=== PATIENT | male | born 1950 | race Caucasian/White ===

== ENCOUNTER 2022-10-01 13:13 | Emergency (ER) | payer MEDICARE, OTHER, SELFPAY ==
[2022-10-01] VITALS (13 sets, daily range): BP systolic 132–163; BP diastolic 78–91; PULSE 68–76; RESP 16; TEMP 36.3; O2SAT 99–100; BMI 30.1
--- NOTE | 2022-10-01 13:28 | ED.GENADULT ---
HPI - General Adult General Time Seen by Provider: 13:28 Date Seen: 10/01/22 Chief complaint: Chest Pain Stated complaint: Light headed/Tightness in Chest Time Seen by Provider: 10/01/22 13:16 Source: patient and RN notes reviewed Mode of arrival: ambulatory Limitations: no limitations History of Present Illness HPI narrative: Patient is a 71-year-old s[place]ana coming in with concern of chest tightness associated with activity. He has noticed increasing sense of chest tightness that happens in the anterior center of his chest with activity. 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 It will go away quickly after rest. He has had no cough or cold symptoms, no recent illness with COVID. In fact, he states he has never had COVID. This tightness does not radiate anywhere. He may feel little lightheaded with it and mildly short of breath. He admits he has some mild underlying COPD but this seems to be escalating in the tightness in his chest with activity. Certainly seems that there has been are recent worsening of his symptoms. He denies any edema. He is not having any chest discomfort at this time. He has no prior cardiac history. He states he recently had his cholesterol drawn and was within guideline limits. He denies any diabetes or hypertension. He has a remote history of smoking. He is unaware of any family history of cardiac disease. Related Data Home Medications Medication Instructions Recorded Confirmed aspirin 81 mg capsule 81 mg PO DAILY 10/01/22 10/01/22 omeprazole 20 mg capsule,delayed 20 mg PO DAILY 10/01/22 10/01/22 release Allergies Allergy/AdvReac Type Severity Reaction Status Date / Time No Known Drug Allergies Allergy Verified 10/01/22 13:25 Review of Systems Status of ROS: Reports: 10 or more systems reviewed and unremarkable except as noted in History and below PFSH PFSH Social History Smoking Status: Never smoker How often do you have a drink containing alcohol: never AUDIT-C Alcohol total score: 0 Non-prescribed substance use: denies use Exam Const: Vital Signs, click to edit/add: Vital Signs - 24 hr 10/01/22 13:22 10/01/22 13:52 10/01/22 14:00 Temperature 97.4 F L Pulse Rate 71 70 Pulse Rate [Pulse Oximeter] 75 Respiratory Rate 16 Blood Pressure Blood Pressure [Ri ght Upper Arm] 163/91 H Pulse Oximetry 100 100 100 Oxygen Delivery Me thod Room Air 10/01/22 14:02 10/01/22 14:03 10/01/22 14:30 Temperature Pulse Rate 68 74 72 Pulse Rate [Pulse Oximeter] Respiratory Rate Blood Pressure 132/78 Blood Pressure [Ri ght Upper Arm] Pulse Oximetry 100 99 100 Oxygen Delivery Me thod 10/01/22 14:32 10/01/22 15:00 10/01/22 15:02 Temperature Pulse Rate 73 71 71 Pulse Rate [Pulse Oximeter] Respiratory Rate Blood Pressure 138/86 143/78 H Blood Pressure [Ri ght Upper Arm] Pulse Oximetry 99 100 100 Oxygen Delivery Me thod 10/01/22 15:30 10/01/22 15:32 10/01/22 16:00 Temperature Pulse Rate 74 73 76 Pulse Rate [Pulse Oximeter] Respiratory Rate Blood Pressure 139/82 Blood Pressure [Ri ght Upper Arm] Pulse Oximetry 99 99 100 Oxygen Delivery Me thod 10/01/22 16:01 Temperature Pulse Rate Pulse Rate [Pulse Oximeter] Respiratory Rate Blood Pressure 149/90 H Blood Pressure [Ri ght Upper Arm] Pulse Oximetry Oxygen Delivery Me thod Documenting provider has reviewed patient's vital signs: yes Common normals: no apparent distress, average body habitus, oriented x3, no limitations, healthy appearing, alert and well nourished General appearance: cooperative, comfortable, well kempt and well developed HENMT: Common normals: normocephalic, head/scalp atraumatic and hearing grossly normal bilaterally Head and scalp: normocephalic and atraumatic Eye: Common normals: PERRL, EOMs intact bilaterally, conjunctivae normal and no scleral icterus Conjunctiva: conjunctiva(e) normal Pupil: PERRL Neck & C-Spine: Common normals: full ROM, no lymphadenopathy, supple, no meningeal signs, no JVD and thyroid normal Thyroid: thyroid normal Chest: Common normals: inspection of chest normal and palpation of chest normal Resp: Common normals: normal respiratory effort, no retractions, no use of accessory muscles and clear to auscultation bilaterally Effort & inspection: able to speak in complete sentences Auscultation: clear to auscultation bilaterally Cardio: Common normals: no JVD, regular rate, regular rhythm, S1 normal heart sound, S2 normal heart sound, no gallops, no clicks and no murmurs Rate: regular rate Rhythm: regular rhythm Heart sounds: S1 normal and S2 normal GI: Common normals: Normal to inspection, nondistended, normoactive bowel sounds present, soft to palpation, non-tender, no hepatosplenomegaly and no masses Palpation: soft and no hepatosplenomegaly Extremity: Other: No edema right leg. Has about 1 to 2+ pretibial pitting edema left leg. He does not feel like his legs are any different, states he has varicose veins on the left. No calf tenderness. Neuro: Common normals: oriented x3 Sensorium/orientation: alert Meningeal signs: no meningeal signs Psych: Appearance: well kempt Course Course Hospital Course: His history certainly sounds concerning for exertional chest pain which could be angina. Considerations for ischemic heart disease, venous thromboembolic disease such as pulmonary emboli, infectious etiology or underlying lung issues are all possibilities here. He does not have many risk factors from questioning him but he is a 71-year-old male. Will do full complement of labs including a D-dimer. He will be monitored on cardiac monitoring and pulse oximetry. Will get a portable chest x-ray. He is asymptomatic at this time. Reevaluation(s) Reevaluation #1: Reviewed with patient that so far labs are looking normal. Did review with him however that we will need a 2nd troponin. He last had his symptoms around 9:00 a.m. this morning. Thus I think we can draw 2nd troponin now as we are over 6 hours from his episode. I will talk to Cardiology about him. Did review with him that it certainly sounds concerning for possible angina. Time: 15:17 Reevaluation #2: Have reviewed normal labs and testing with patient. Reviewed my phone call with cardiology. Patient had the stress test in May because of periodic chest pain like this. Recommended minimizing activity that would induce this typically, follow up in clinic with primary provider to further review his symptoms. He can always return here for recheck or further evaluation if worsening in the interim. Time: 16:14 Consultations Consultation #1: Spoke with Dr. Thompson Cardiology on-call through [facility]. He and I reviewed the patient's case. He was able to see that the patient had a normal nuclear stress test 05/15/2022. There is no ischemia, no infarction. EF was 65%. He does not feel that there is any risk for ischemic disease with this patient. We will refer patient back to clinic to potentially look at pulmonary causes as etiology of his symptoms. Time: 15:33 Vital Signs Vital signs: Initial Vital Signs Temperature 97.4 F L 10/01/22 13:22 Temperature Source Temporal Artery Scan 10/01/22 13:22 Pulse Rate 75 10/01/22 13:22 Pulse Rhythm Regular 10/01/22 13:22 Respiratory Rate 16 10/01/22 13:22 Blood Pressure 163/91 H 10/01/22 13:22 Blood Pressure Mean 115 10/01/22 13:22 Blood Pressure Position Sitting 10/01/22 13:22 Pulse Oximetry 100 10/01/22 13:22 Oxygen Delivery Method Room Air 10/01/22 13:22 Vital Signs Temperature 97.4 F L 10/01/22 13:22 Pulse Rate 75 10/01/22 13:22 Respiratory Rate 16 10/01/22 13:22 Blood Pressure 163/91 H 10/01/22 13:22 Pulse Oximetry 100 10/01/22 13:22 Oxygen Delivery Method Room Air 10/01/22 13:22 Temperature 97.4 F L 10/01/22 13:22 Pulse Rate 76 10/01/22 16:00 Respiratory Rate 16 10/01/22 13:22 Blood Pressure 149/90 H 10/01/22 16:01 Pulse Oximetry 100 10/01/22 16:00 Oxygen Delivery Method Room Air 10/01/22 13:22 Medical Decision Making Lab Data Lab results reviewed: Yes I reviewed the patient's lab results Labs: Lab Results 10/01/22 10/01/22 Range/Units 13:45 15:40 WBC 6.93 (4.50-11.00) K/uL RBC 5.37 (4.30-5.90) m/uL Hgb 15.2 (13.5-17.5) gm/dL Hct 45.4 (37.0-53.0) % MCV 85 (80-100) fL MCH 28 (26-34) pg MCHC 34 (32-36) gm/dL RDW Coeff of [place] 13.5 (11.5-15.5) % Plt Count 243 (140-440) K/uL Neut % (Auto) 54.8 (42.0-72.0) % Lymph % (Auto) 27.7 (20-44) % [place] % (Auto) 9.7 (0.0-11.0) % Eos % (Auto) 7.1 H (0.0-7.0) % Baso % (Auto) 0.3 (0.0-3.0) % Neut # (Auto) 3.80 (1.7-7.0) K/uL Lymph # (Auto) 1.92 (0.90-2.90) K/uL [place] # (Auto) 0.70 (0.00-0.90) K/UL Eos # (Auto) 0.50 (0.00-0.50) K/uL Baso # (Auto) 0.02 (0.00-0.30) K/uL D-Dimer Quant (PE/DVT) 0.30 (0.00-0.50) ug/ml VBG pH 7.367 (7.32-7.43) VBG pCO2 48 (40-50) mmHG VBG pO2 36.1 (25-47) mmHG VBG HCO3 27 (21-28) mmol/L Sodium 137 (135-149) mmol/L Potassium 4.4 (3.6-5.1) mmol/L Chloride 106 (96-114) mmol/L Carbon Dioxide 25 (20-32) mmol/L BUN 15 (7-30) mg/dL Creatinine 0.9 (0.5-1.5) mg/dL Estimated Creat Clear 67.75 Estimated GFR 91 ml/min Glucose 105 (60-115) mg/dL Calcium 9.2 (8.4-10.6) mg/dL Magnesium 2.0 (1.5-2.6) mg/dL Total Bilirubin 0.9 (0.1-1.5) mg/dL AST 30 (12-35) U/L ALT 22 (4-50) U/L Alkaline Phosphatase 86 (40-150) U/L C-Reactive Protein 0.7 (0.5-1.0) mg/dL NT-Pro-B Natriuret Pep 145 pg/mL Total Protein 8.0 (6.0-8.3) g/dL Albumin 4.4 (3.3-5.0) g/dL POC Troponin I 0.00 L 0.00 L (0.01-0.04) ng/ml Second point of care troponin is at 0.00. ECG Data Attestation: I personally reviewed and interpreted this ECG as follows: (Normal sinus rhythm, 73 beats per minute. No acute ischemia. QT corrected 440 milliseconds. Isolated flipped T-waves in V1 and [address] segment changes.) Prior ECG tracings: not available for review Interpretation: EKG timed 15:57 shows normal sinus rhythm, 77 beats per minute. No acute ischemic change. Ongoing stability from initial one. Critical Care Time Critical Care Time Critical Care Time: No Discharge Plan Discharge Clinical Impression: Chest pain Patient Disposition: Home, Self-Care Condition: Stable Instructions: Chest Pain (ED) Additional Instructions: Need to follow up in clinic as soon as you can. Cardiology recommends having your primary care provider look at pulmonary causes as possibility of your chest symptoms. I would consider having you get formal pulmonary function tests, possibly even referral to pulmonology if need be. The auto painter helper reported that you had a normal nuclear stress test in May of 2022. He does not feel that with this test being normal, that there are concerns for this being heart disease. Try to minimize activity to a level where you do not feel any discomfort. Activity Level: Activity as Tolerated Prescriptions: No Action omeprazole 20 mg capsule,delayed release(DR/EC) 20 mg PO DAILY aspirin 81 mg capsule 81 mg PO DAILY Follow Up/Referrals: Nic Reyez MD [Primary Care Provider] - Stand Alone Forms: [facility] Info Instructions
--- NOTE | 2022-10-01 13:36 | CRLHL7_ITS ---
For Patients: As a result of the Century Cures Act, medical imaging exams and procedure reports are released immediately into your electronic medical record. You may view this report before your referring provider. If you have questions, please contact your health care provider. INDICATION: Chest tightness TECHNIQUE: Single-view chest. Comparison chest x-ray 11/21/2011 FINDINGS: Enlarged cardiac silhouette. Low lung volumes. Slight prominence interstitial markings could be related to mild pulmonary edema no consolidation effusion or pneumothorax is seen. Dictated by Franca Albrecht MD @ 10/01/2022 2:28:49 PM (Electronically Signed)
[2022-10-01 13:52] LABS: HCO3 VBG 27 mmol/L (21-28); PCO2 VBG 48 mmHG (40-50); PO2 VBG 36.1 mmHG (25-47); pH VBG 7.367 (7.32-7.43)
[2022-10-01 13:53] LABS: Basophils Absolute Auto 0.02 K/uL (0.00-0.30); Basophils Percent Auto 0.3 % (0.0-3.0); Eosinophils Percent Auto 7.1 % (0.0-7.0); Hematocrit 45.4 % (37.0-53.0); Hemoglobin* 15.2 gm/dL (13.5-17.5); Immature Granulocytes Abs Auto 0.03 K/uL (0.00-0.30); Immature Granulocytes Pct Auto 0.4 %; Lymphocytes Absolute Auto 1.92 K/uL (0.90-2.90); Lymphocytes Percent Auto 27.7 % (20-44); Mean Corpuscular HGB Conc 34 gm/dL (32-36); Mean Corpuscular Hemoglobin 28 pg (26-34); Mean Corpuscular Volume 85 fL (80-100); Monocytes Percent Auto 9.7 % (0.0-11.0); Neutrophils Percent Auto 54.8 % (42.0-72.0); Platelet Count* 243 K/uL (140-440); RDW Coefficient of Variation % 13.5 % (11.5-15.5); Red Blood Count 5.37 m/uL (4.30-5.90); White Blood Count* 6.93 K/uL (4.50-11.00)
[2022-10-01 13:58] LABS: Slide Review Reflex No
[2022-10-01 14:06] LABS: Albumin* 4.4 g/dL (3.3-5.0); Chloride* 106 mmol/L (96-114)
[2022-10-01 14:07] LABS: Potassium* 4.4 mmol/L (3.6-5.1); Sodium* 137 mmol/L (135-149)
[2022-10-01 14:09] LABS: Creatinine* 0.9 mg/dL (0.5-1.5); Est. Creatinine Clearance* 67.75; Estimated Glomerular Filt Rate 91 ml/min
[2022-10-01 14:10] LABS: Alanine Aminotransferase* 22 U/L (4-50); Alkaline Phosphatase* 86 U/L (40-150); Aspartate Amino Transferase* 30 U/L (12-35); Bilirubin Total* 0.9 mg/dL (0.1-1.5); Blood Urea Nitrogen* 15 mg/dL (7-30); Calcium* 9.2 mg/dL (8.4-10.6); Carbon Dioxide* 25 mmol/L (20-32); Glucose* 105 mg/dL (60-115)
[2022-10-01 14:13] LABS: C Reactive Protein* 0.7 mg/dL (0.5-1.0)
[2022-10-01 14:19] LABS: NT Pro B Type NatriureticPept* 145 pg/mL
== END 2022-10-01 16:43 | disposition home or self-care (01) ==
PROVIDERS: Emergency Provider Family Medicine; PCP Family Medicine
DX: R07.9 Chest pain, unspecified (principal)
CPT/HCPCS: 36415; 71045; 80053; 82803; 83735; 83880; 84484; 85025; 85379; 86140; 93005; 94761; 99284; 99285

== ENCOUNTER 2023-02-15 16:39 | Emergency (ER) | payer MEDICARE, OTHER, SELFPAY ==
[2023-02-15 16:45] VITALS: BP 131/84; PULSE 81; RESP 16; TEMP 36.6; O2SAT 100; BMI 28.5
--- NOTE | 2023-02-15 17:25 | CRLHL7_ITS ---
For Patients: As a result of the Century Cures Act, medical imaging exams and procedure reports are released immediately into your electronic medical record. You may view this report before your referring provider. If you have questions, please contact your health care provider. HISTORY: Dyspnea. Chest tightness. TECHNIQUE: Two views of the chest. COMPARISON: 10/01/2022. FINDINGS: There are curvilinear calcifications projecting over the lower heart which may relate to pericardial calcifications. They appear new. Heart size is prominent. There is no pulmonary vascular congestion. No focal lung infiltrate or pulmonary edema. No pneumothorax or pleural effusion. There are degenerative changes of the spine. Minor anterior wedging of a mid thoracic vertebral body may be chronic. IMPRESSION: 1. Curvilinear calcifications projecting over the lower heart which may relate to new pericardial calcifications. 2. Mild cardiomegaly. 3. No focal lung infiltrate or pulmonary edema. Dictated by Jv Headley MD @ 02/15/2023 6:08:30 PM Dictated by: Jv Headley MD @ 02/15/2023 18:08:36 (Electronically Signed)
--- NOTE | 2023-02-15 17:26 | ED_ITS ---
HPI - General Adult General Date Seen: 02/15/23 Chief complaint: Chest Pain Stated complaint: Short of breath Time Seen by Provider: 02/15/23 16:53 History of Present Illness HPI narrative: 72 yo male presents to the ER with his for evalation of chest tightness, shortness of breath. He has a history of intermittent chest pain, often with exertion, dating back several months. In particularly her get shortness of breath and chest tightness with activity such as going up steps. Sometimes with walking between rooms. He had had a workup for this through the [facility] and had a nuclear stress test on 05/15/2022 that was reported to be normal. EF was 65% on that study. He was seen in the ER in September for chest pain and also had a negative workup. Since then he has had ongoing insertional chest pain. He had follow-up with Cardiology at [facility]. His and the patient report that he had an angiogram done at [facility] in November that was normal. Apparently there were no significant lesions and he has not require any stents. He is apparently due to have another follow-up with his balance wheel facer at [facility], scheduled in March. He is here in the ER today because over the past few days he has had worsening symptoms. He is noticing more frequent episodes of shortness of breath, especially with exertion like going up and down steps, and more tightness in his chest. No other new symptoms. No cough. No fever. He is not having any palpitations. No syncopal events. He is not nauseous. No pain through to his back. No pleuritic pain. He is currently feeling fine. He is able to ambulate back and forth from his ER room to the bathroom in the ER without any shortness of breath, tightness, or discomfort. He has not had any history of cardiovascular disease, valvular disease, arrhythmia, or known coronary artery disease. No history of lung disease. He was a former smoker and only smoked for few years during his young adulthood. It has been 15 years since he quit. No history of asthma or COPD. He does have chronic swelling in his legs, with bilateral extremity edema which he says is at baseline. Related Data Home Medications Medication Instructions Recorded Confirmed aspirin 81 mg capsule 81 mg PO DAILY 10/01/22 02/15/23 omeprazole 20 mg capsule,delayed 20 mg PO DAILY 10/01/22 02/15/23 release rosuvastatin 20 mg tablet 20 mg PO QPM 02/15/23 02/15/23 Previous Rx's Medication Instructions Recorded apixaban 5 mg tablet (Eliquis) 5 mg PO BID #60 tabs 02/15/23 Allergies Allergy/AdvReac Type Severity Reaction Status Date / Time No Known Drug Allergies Allergy Verified 02/15/23 16:52 PFSH PFS Social History Smoking Status: Former smoker Do you use any of these nicotine containing products: None Second hand tobacco smoke exposure: No How often do you have a drink containing alcohol: monthly or less AUDIT-C Alcohol total score: 1 Non-prescribed substance use: denies use Exam Narrative: Exam Narrative: Constitutional: Appears well-developed and well-nourished. Alert. Conversant. Non toxic. He is able to walk himself back from the bathroom to his ER bed wi thout any symptoms. HENT: Head: Atraumatic. Nose: Nose normal. Mouth/Throat: Oral mucosa is clear and moist. no trismus. Pharynx normal. Tonsils symmetric. No tonsillar enlargement, erythema, or exudate. Eyes: Conjunctivae normal. EOM normal. Pupils equal, round, and reactive to light. No scleral icterus. Neck: Normal range of motion. Neck supple. No tracheal deviation present. No JVD. Cardiovascular: Normal rate, regular rhythm. Heart rate in the 70s. He has atrial flutter with 4:1 conduction on EKG. No gallop. No friction rub. No murmur heard. Symmetric radial and PT artery pulses Pulmonary/Chest: Effort normal. No stridor. No respiratory distress. No wheezes. No rales. No rhonchi . No tenderness. Abdominal: Soft. Bowel sounds normal. No distension. No mass. No tenderness. No rebound. No guarding. Musculoskeletal: RUE: Normal range of motion. No tenderness. No deformity LUE: Normal range of motion. No tenderness. No deformity RLE: Normal range of motion. 2+ edema. No tenderness. No deformity LLE: Normal range of motion. 2+ edema. No tenderness. No deformity Lymph: No cervical adenopathy. Neurological: Alert and oriented to person, place, and time. Normal strength. CN II-VII intact. No sensory deficit. GCS eye subscore is 4. GCS verbal subscore is 5. GCS motor subscore is 6. Normal coordination Skin: Skin is warm and dry. No rash noted. No pallor. Normal capillary refill. Psychiatric: Normal mood. Normal affect. Const: Vital Signs, click to edit/add: Vital Signs - 24 hr 02/15/23 16:45 Temperature 97.8 F Pulse Rate [Pulse Oximeter] 81 Respiratory Rate 16 Blood Pressure [Ri ght Upper Arm] 131/84 Pulse Oximetry 100 Oxygen Delivery Me thod Room Air Course Vital Signs Vital signs: Initial Vital Signs Temperature 97.8 F 02/15/23 16:45 Temperature Source Temporal Artery Scan 02/15/23 16:45 Pulse Rate 81 02/15/23 16:45 Respiratory Rate 16 02/15/23 16:45 Blood Pressure 131/84 02/15/23 16:45 Blood Pressure Mean 99 02/15/23 16:45 Blood Pressure Position Sitting 02/15/23 16:45 Pulse Oximetry 100 02/15/23 16:45 Oxygen Delivery Method Room Air 02/15/23 16:45 Vital Signs Temperature 97.8 F 02/15/23 16:45 Pulse Rate 81 02/15/23 16:45 Respiratory Rate 16 02/15/23 16:45 Blood Pressure 131/84 02/15/23 16:45 Pulse Oximetry 100 02/15/23 16:45 Oxygen Delivery Method Room Air 02/15/23 16:45 Temperature 97.8 F 02/15/23 16:45 Pulse Rate 81 02/15/23 16:45 Respiratory Rate 16 02/15/23 16:45 Blood Pressure 131/84 02/15/23 16:45 Pulse Oximetry 100 02/15/23 16:45 Oxygen Delivery Method Room Air 02/15/23 16:45 Medical Decision Making MDM Narrative Medical decision making narrative: This patient presents to the ER today for evaluation of chest pain, exertional shortness of breath. Differential was broad. He does have evidence for atrial flutter with a normal ventricular rate of 75 and 4:1 av conduction. This is a new diagnosis for him. He is rate controlled. He does not feel any palpitations. No recent syncopal events. Unclear if flutter is acutely, or possibly chronic. Since he has had worsening trouble with his breathing for the past 2 days, I suspect it is probably been present at least that long. Without a clear time of onset, would not be a good candidate for immediate cardioversion here in the ER. Chads Vasc score is 1. Unclear etiology for the atrial flutter. Thyroid normal. Electrolytes normal. No drug or alcohol consumption. No PE. And discuss with Cardiology from male they recommend outpatient management with outpatient Holter monitor, outpatient transthoracic echo. They recommend considering anticoagulation since his chads Vasc score is 1. Discussed risks/benefits of anticoagulation with the patient and his agree to start Eliquis. Prescription sent to his pharmacy. He will need close outpatient follow-up with his primary care provider at the [facility] to arrange his echo. It sounds like he just completed a 14 day Holter monitor and sent in today (unclear why his primary ordered this? He does not recall any previous mention of atrial flutter). If he has persistent atrial flutter, would need 4 weeks of anticoagulation before he could have cardioversion per Cardiology. Cardiology also wants him to call the [facility] on Friday to move up his appointment to within the next 1-2 weeks. Considered the possibility of atrial flutter triggering episode of CHF, but BNP, chest x-ray, and chest CT did not show any evidence for CHF or pulmonary edema. We considered possible ACS. However the patient has been having intermittent episodes of chest tightness and exertional shortness of breath off and on for months and has already had a negative nuclear stress test done through the [facility] and a negative cardiac catheterization done at [facility] (patient reports normal catheterization in November, 3 months ago). Repeat workup with EKG and troponin is negative. HEART score is 4, but he has a recent normal cardiac cath. Given time since onset of symptoms, I do not think the patient needs to be admitted for further sets of enzymes. EKG shows no evidence for pericarditis. Clinical presentation not suggestive of myocarditis. Chest x-ray shows no evidence for pneumonia, pneumothorax, pulmonary edema, pleural effusion, rib fracture, cardiomegaly. Mediastinum is normal on the x-ray. The patient has no ripping or tearing pain through to the back and has symmetric pulses on exam, no other acute neuro findings so I doubt aortic dissection. Risk of radiation and contrast exposure would outweigh the benefit of CT angiogram. We considered PE for this patient. Abnormal D-dimer prompted PE protocol chest CT which is fortunately negative for PE. The CT scan does show evidence for nonspecific pulmonary nodules and ground- glass opacities, possibly infectious. Treat with a course of antibiotics but recommend outpatient follow-up repeat CT scan of the lungs in 3-6 months, as per Radiology recommendation. No wheezing or bronchospasm to suggest COPD/asthma. No signs of chest wall cellulitis, shingles, injury. No associated abdominal pain to suggest gastritis or peptic ulcer disease or cholecystitis causing referred discomfort in the chest. With reasonable clinical confidence, I think the patient is safe for outpatient follow up. Discussed return precautions. Questions answered. Patient voices comfort with the plan. Lab Data Labs: Lab Results 02/15/23 02/15/23 Range/Units 17:03 18:57 WBC 7.72 (4.50-11.00) K/uL RBC 4.79 (4.30-5.90) m/uL Hgb 13.5 (13.5-17.5) gm/dL Hct 41.1 (37.0-53.0) % MCV 86 (80-100) fL MCH 28 (26-34) pg MCHC 33 (32-36) gm/dL RDW Coeff of [place] 13.6 (11.5-15.5) % Plt Count 255 (140-440) K/uL Neut % (Auto) 57.7 (42.0-72.0) % Lymph % (Auto) 26.6 (20-44) % [place] % (Auto) 9.1 (0.0-11.0) % Eos % (Auto) 5.8 (0.0-7.0) % Baso % (Auto) 0.4 (0.0-3.0) % Neut # (Auto) 4.46 (1.7-7.0) K/uL Lymph # (Auto) 2.05 (0.90-2.90) K/uL [place] # (Auto) 0.70 (0.00-0.90) K/UL Eos # (Auto) 0.45 (0.00-0.50) K/uL Baso # (Auto) 0.03 (0.00-0.30) K/uL Abs Immat Gran (auto) 0.03 (0.00-0.30) K/uL Imm/Tot Granulo (auto) 0.4 % INR 1.02 (0.91-1.10) D-Dimer Quant (PE/DVT) 1.50 H (0.00-0.50) ug/ml Sodium 137 (135-149) mmol/L Potassium 4.1 (3.6-5.1) mmol/L Chloride 106 (96-114) mmol/L Carbon Dioxide 20 (20-32) mmol/L BUN 16 (7-30) mg/dL Creatinine 1.1 (0.5-1.5) mg/dL Estimated Creat Clear 64.65 Estimated GFR 71 ml/min Glucose 96 (60-115) mg/dL Calcium 9.1 (8.4-10.6) mg/dL Troponin I < 0.01 L (0.01-0.04) ng/mL NT-Pro-B Natriuret Pep 722 pg/mL TSH 2.540 (0.270-4.200) uIU/mL Urine Color Yellow (Yellow) Urine Appearance Clear (Clear) Urine pH 7.0 (5.0-8.5) Ur Specific [place] 1.010 (1.000-1.030) Urine Protein Negative (Negative) Urine Glucose (UA) Negative (Negative) Urine Ketones Negative (Negative) Urine Blood Negative (Negative) Urine Nitrite Negative (Negative) Urine Bilirubin Negative (Negative) Urine Urobilinogen 0.2 (0.2-1.0) Ur Leukocyte Esterase Negative (Negative) Urine RBC 0-2 (0-2) Urine WBC 0-2 (0-5) Ur Squamous Epith Cells None (None-Few) Urine Bacteria None (None) Imaging Data Chest x-ray: My impression: No visible pneumothorax, pneumonia, pleural effusion, pulmonary edema. Radiologist's impression: IMPRESSION: 1. Curvilinear calcifications projecting over the lower heart which may relate to new pericardial calcifications. 2. Mild cardiomegaly. 3. No focal lung infiltrate or pulmonary edema. CT scan - chest: Radiologist's impression: IMPRESSION: 1. No evidence of pulmonary embolus. 2. Bilateral subcentimeter pulmonary nodules measuring up to 6 mm with faint bilateral ground-glass opacities. Findings may be infectious/inflammatory in nature, however, follow-up chest CT in 3-6 months is recommended for further evaluation. 3. Pericardial heterogeneity and calcifications suggest prior infection/inflammation. 4. Small hiatal hernia. ECG Data Attestation: I personally reviewed and interpreted this ECG as follows: Interpretation: Atrial flutter with 4:1 av conduction LA ----. QRS axis normal ST segment/T wave: Difficult to assess because of superimposed flutter waves but no clear ST segment elevation or depression. QTc: 407 Discharge Plan Discharge Clinical Impression: Atrial flutter, Pulmonary nodule, Chest pain Patient Disposition: Home, Self-Care Condition: Stable Instructions: Atrial Flutter (DC), Chest Pain (DC), Pulmonary Nodules (ED) Additional Instructions: Your workup here in the ER today shows that you are having a new irregular heart rhythm called atrial flutter. We suspect that this is causing at least some of your trouble breathing and episodes of chest pain. You will need further workup for your atrial flutter. Please take the following steps. 1. You already had a 2 week Holter monitor through your regular doctor. Please follow-up with her within the next 1-3 days to find out the results of that the heart monitor. 2. Ask your regular doctor to arrange a transthoracic echocardiogram (an ultrasound of your heart) 3. Call the Cardiology Clinic at [facility] on Friday morning. Tell them that you were in the ER and diagnosed with atrial flutter today. We discussed with the on-call balance wheel facer and he wants you to have your appointment moved up within 1-2 weeks. 4. Please start taking the blood thinner (Eliquis) to minimize your risk for stroke The CT scan of your lungs and it shows that you have a few small pulmonary nodules. At this point we do not know the exact cause of her nodules, but we suspect there probably small spots related to a previous infection. It is important for you to get a repeat lung CT scan within 3-6 months to double check these nodules to make sure they are not cancerous. Activity Level: Activity as Tolerated Prescriptions: New Eliquis 5 mg tablet 5 mg PO BID Qty: 60 0RF No Action rosuvastatin 20 mg tablet 20 mg PO QPM omeprazole 20 mg capsule,delayed release(DR/EC) 20 mg PO DAILY aspirin 81 mg capsule 81 mg PO DAILY Follow Up/Referrals: Simran Cleary MD [Primary Care Provider] - 2 Days (Follow-up for atrial flutter Was started on Eliquis stroke prophylaxis after ER visit on 02/15 Needs outpatient transthoracic echo Needs outpatient Holter monitor Follow-up with [facility] with 1-2 weeks.) Stand Alone Forms: [employer] Info Instructions
[2023-02-15 17:32] LABS: Basophils Absolute Auto 0.03 K/uL (0.00-0.30); Basophils Percent Auto 0.4 % (0.0-3.0); Eosinophils Absolute Auto 0.45 K/uL (0.00-0.50); Eosinophils Percent Auto 5.8 % (0.0-7.0); Hematocrit 41.1 % (37.0-53.0); Hemoglobin* 13.5 gm/dL (13.5-17.5); Immature Granulocytes Abs Auto 0.03 K/uL (0.00-0.30); Immature Granulocytes Pct Auto 0.4 %; Lymphocytes Absolute Auto 2.05 K/uL (0.90-2.90); Lymphocytes Percent Auto 26.6 % (20-44); Mean Corpuscular HGB Conc 33 gm/dL (32-36); Mean Corpuscular Hemoglobin 28 pg (26-34); Mean Corpuscular Volume 86 fL (80-100); Monocytes Percent Auto 9.1 % (0.0-11.0); Neutrophils Absolute Auto 4.46 K/uL (1.7-7.0); Neutrophils Percent Auto 57.7 % (42.0-72.0); Platelet Count* 255 K/uL (140-440); RDW Coefficient of Variation % 13.6 % (11.5-15.5); Red Blood Count 4.79 m/uL (4.30-5.90); White Blood Count* 7.72 K/uL (4.50-11.00)
[2023-02-15 17:36] LABS: Slide Review Reflex No
[2023-02-15 17:48] LABS: Chloride* 106 mmol/L (96-114); Sodium* 137 mmol/L (135-149)
[2023-02-15 17:49] LABS: Potassium* 4.1 mmol/L (3.6-5.1)
[2023-02-15 17:50] LABS: INR 1.02 (0.91-1.10)
[2023-02-15 17:51] LABS: Blood Urea Nitrogen* 16 mg/dL (7-30); Carbon Dioxide* 20 mmol/L (20-32); Creatinine* 1.1 mg/dL (0.5-1.5); Est. Creatinine Clearance* 64.65; Estimated Glomerular Filt Rate 71 ml/min
[2023-02-15 17:52] LABS: Calcium* 9.1 mg/dL (8.4-10.6); Glucose* 96 mg/dL (60-115)
[2023-02-15] MEDS: ASPIRIN 81 MG TAB.CHEW 324 MG PO (18:00)
[2023-02-15 18:06] LABS: NT Pro B Type NatriureticPept* 722 pg/mL; Troponin I* < 0.01 ng/mL (0.01-0.04)
--- NOTE | 2023-02-15 18:09 | CRLHL7_ITS ---
For Patients: As a result of the Century Cures Act, medical imaging exams and procedure reports are released immediately into your electronic medical record. You may view this report before your referring provider. If you have questions, please contact your health care provider. INDICATION: Shortness of breath. TECHNIQUE: CT chest pulmonary angiogram acquired with 95 cc of Isovue 370 IV contrast. COMPARISON: None FINDINGS: Cardiovascular structures: CT pulmonary angiogram demonstrates adequate opacification of the pulmonary arteries. No evidence of pulmonary embolus. Main pulmonary artery is normal in caliber. Aortic atherosclerosis. The non-opacified thoracic aorta is otherwise unremarkable. Heart size is within normal limits. Mild to moderate coronary artery calcifications. Mediastinum and jaimie: No pathologic lymphadenopathy. Small hiatal hernia. Lungs: No pneumothorax. Central airways are patent. Right upper lobe 5 mm nodule on image 31 of series 4. Left lower lobe 6 mm nodule on image 128. Posterior left lower lobe 5 mm nodule on image 159. There are additional small bilateral sub centimeter nodules and faint ground-glass opacities. Pleura and pericardium: No pleural effusions. Mild diffuse heterogeneity of the pericardium with multiple pericardial calcifications. Chest wall and axilla: Unremarkable. Bones: Mild degenerative changes of the spine. No acute or suspicious osseous abnormality. Upper abdomen: Fatty atrophy of the pancreas. Visualized upper abdomen is otherwise unremarkable. IMPRESSION: 1. No evidence of pulmonary embolus. 2. Bilateral subcentimeter pulmonary nodules measuring up to 6 mm with faint bilateral ground-glass opacities. Findings may be infectious/inflammatory in nature, however, follow-up chest CT in 3-6 months is recommended for further evaluation. 3. Pericardial heterogeneity and calcifications suggest prior infection/inflammation. 4. Small hiatal hernia. Dictated by Jovani Vinson MD @ 02/15/2023 7:01:00 PM Please note that all CT scans at this facility use dose modulation, iterative reconstruction, and/or weight-based dosing when appropriate to reduce radiation dose to as low as reasonably achievable. Dictated by: Jovani Vinson MD @ 02/15/2023 19:01:22 (Electronically Signed)
[2023-02-15 19:31] LABS: Appearance Urine Clear (Clear); Bilirubin Urine Negative (Negative); Blood Urine Negative (Negative); Color Urine Yellow (Yellow); Glucose Urine Negative (Negative); Ketones Urine Negative (Negative); Leukocyte Esterase Urine Negative (Negative); Nitrite Urine Negative (Negative); Protein Urine Negative (Negative); Urobilinogen Urine 0.2 (0.2-1.0)
[2023-02-15 19:35] LABS: RBC Urine 0-2 (0-2); WBC Urine 0-2 (0-5)
== END 2023-02-15 20:00 | disposition home or self-care (01) ==
PROVIDERS: Emergency Provider Emergency Medicine; PCP Family Medicine
DX: I48.92 Unspecified atrial flutter (principal); R91.1 Solitary pulmonary nodule; R07.9 Chest pain, unspecified
CPT/HCPCS: 36415; 71046; 71275; 80048; 81001; 83880; 84443; 84484; 85025; 85379; 85610; 87631; 99284; 99285; A9270; Q9967

== ENCOUNTER 2023-02-19 21:31 | Emergency (ER) | payer MEDICARE, OTHER, SELFPAY ==
[2023-02-19 21:39] VITALS: BP 135/85; PULSE 82; RESP 16; TEMP 36.5; O2SAT 100; BMI 28.5
--- NOTE | 2023-02-19 21:57 | ED.GENADULT ---
HPI - General Adult General Chief complaint: Edema Stated complaint: left leg is swollen Time Seen by Provider: 02/19/23 21:57 History of Present Illness HPI narrative: was seen last Friday in ER with afib/chest pain. today noticed this evening when getting in the shower that the L lower leg was more swollen than the R. bilateral pitting 2+ edema present in LE. increased SOB with exertion over the past few months, but denies any changes to this SOB today. denies chest pain today. no redness or pain 72-year-old man presenting to the emergency department with concern of swelling in his left leg. No pain or redness. No trauma. Tonight while getting in the shower noticed that his left lower leg was more swollen than the right. Does have some edema chronically. Though when I mention his right leg as well, seems surprised that that appears a little swollen to me. Did spend a good deal of today sitting with his legs down. Was seen 4 days ago in the emergency department and diagnosed with a flutter. And was initiated on Eliquis. He has been struggling since late last year with exertional dyspnea, lightheadedness, chest pressure. In November of this year had an angiogram which did show some calcification per their report but no intervention was deemed necessary; no significant lesions. This was done at [facility]. He had what sounds to have been some sort of a stress echocardiogram before that --nuclear stress test per review of records. This was in May 2022. This atrial flutter is a new diagnosis. They do feel that more recently these symptoms have become more severe. They seem to be worried that might be ischemic cardiovascular disease as well as being concerned and frustrated that they were not able to get a solid diagnosis and that they were not able to see Cardiology until the end of March. Evidently though per the on-call livestock nutritionist, the appointment should be moved up 1-2 weeks if possible. It appears they are anticipating another echocardiogram before that. They are frustrated I think with some lack of communication from [facility]. Evaluation in the ER was not convincing for heart failure. CTA chest 4 days ago also was negative for pulmonary embolus. Is a santana and finding it increasingly difficult to do what he needs to do due to the fatigue. I would refer to ER notes; a very thorough assessment on 02/15/2023. Related Data Home Medications Medication Instructions Recorded Confirmed omeprazole 20 mg capsule,delayed 20 mg PO DAILY 10/01/22 02/19/23 release rosuvastatin 20 mg tablet 20 mg PO QPM 02/15/23 02/19/23 Previous Rx's Medication Instructions Recorded apixaban 5 mg tablet (Eliquis) 5 mg PO BID #60 tabs 02/15/23 Allergies Allergy/AdvReac Type Severity Reaction Status Date / Time No Known Drug Allergies Allergy Verified 02/15/23 16:52 Review of Systems Status of ROS: Reports: 6 or more systems reviewed and unremarkable except as noted in History and below [facility] Social History Smoking Status: Former smoker Do you use any of these nicotine containing products: None Second hand tobacco smoke exposure: No How often do you have a drink containing alcohol: monthly or less AUDIT-C Alcohol total score: 1 Non-prescribed substance use: denies use Exam Narrative: Exam Narrative: Pleasant. A little hard of hearing. Breathing easily. Lungs are clear. Neck is supple without JVD. Heart in a regular rate and rhythm without murmur rub or gallop identified. Abdomen is protuberant soft nontender. Well-perfused peripherally. Both lower legs have numerous superficial varicosities. There is soft swelling about the ankle of both. Generally from the knee down admittedly the left leg is a little more swollen than the right. No erythema. Negative Homans. No tenderness to palpation anywhere really. Const: Vital Signs, click to edit/add: Vital Signs - 24 hr 02/19/23 21:39 Temperature 97.7 F Pulse Rate [Pulse Oximeter] 82 Respiratory Rate 16 Blood Pressure [Le ft Upper Arm] 135/85 Pulse Oximetry 100 Oxygen Delivery Me thod Room Air Documenting provider has reviewed patient's vital signs: yes Course Vital Signs Vital signs: Initial Vital Signs Temperature 97.7 F 02/19/23 21:39 Temperature Source Temporal Artery Scan 02/19/23 21:39 Pulse Rate 82 02/19/23 21:39 Respiratory Rate 16 02/19/23 21:39 Blood Pressure 135/85 02/19/23 21:39 Blood Pressure Mean 101 02/19/23 21:39 Blood Pressure Position Sitting 02/19/23 21:39 Pulse Oximetry 100 02/19/23 21:39 Oxygen Delivery Method Room Air 02/19/23 21:39 Vital Signs Temperature 97.7 F 02/19/23 21:39 Pulse Rate 82 02/19/23 21:39 Respiratory Rate 16 02/19/23 21:39 Blood Pressure 135/85 02/19/23 21:39 Pulse Oximetry 100 02/19/23 21:39 Oxygen Delivery Method Room Air 02/19/23 21:39 Temperature 97.7 F 02/19/23 21:39 Pulse Rate 82 02/19/23 21:39 Respiratory Rate 16 02/19/23 21:39 Blood Pressure 135/85 02/19/23 21:39 Pulse Oximetry 100 02/19/23 21:39 Oxygen Delivery Method Room Air 02/19/23 21:39 Medical Decision Making MDM Narrative Medical decision making narrative: As noted had extensive evaluation and Cardiology was consulted 4 days ago. I did review all labs and the notes of this visit. I do not think more can be added from an ER perspective at this time. I do think that Mr. Weber is suffering from peripheral edema and likelihood of a venous thrombus is quite low and furthermore is already anticoagulated now with Eliquis. Was clear that will need to complete this ultrasound, partly for reassurance. Did request venous ultrasound of the left lower extremity. This was indeed negative for any DVT or other cystic structure. I discussed these findings with air pollution compliance inspector and reviewed radiology over-read. Did spend some time conversation with Mr. Weber regarding his fatigue and their concerns. Vitals today were quite good. Surely his worsening symptoms are worrisome. Did not show convincing evidence of systolic heart failure 4 days ago but it would appear to be cardiac in origin. I would presume that untreated atrial flutter would be contributing to some cardiac stress. They also recount some question of pulmonary evaluation but upon review of records [facility] has returned them to Cardiology they say. I am not able to arrange for an earlier cardiac visit at this time. They do endorse an appointment with primary care provider in the morning at 8:45 a.m.. Able to offer reassurance at least regarding his legs. I think peripheral edema possibly diastolic failure is contributing but would benefit from some compression and elevation generally. I did apply Ron wraps to both lower extremities. See patient discharge plan. Medical Records Medical records reviewed: Yes I reviewed the patient's medical records ECG Data Attestation: I personally reviewed and interpreted this ECG as follows: (Normal sinus rhythm there appears to be some atrial enlargement. No acute ischemic changes. Rate of 84.) Discharge Plan Discharge Clinical Impression: Fatigue, Peripheral edema Patient Disposition: Home w/ Parent or Adult Condition: Stable Additional Instructions: Regarding your legs, I would be sure to consistently elevate them while at rest. We are talking generally at the level of your heart. You might wear these Ron wraps overnight if not too uncomfortable. Consider getting compression stockings for use during the day when you are up and about. As far as this exertional fatigue, chest pressure. It does look as though you have had a pretty thorough and thoughtful workup. I am sure you will get more of this going to [facility]. I understand that you're frustrated and concerned. Follow-up tomorrow morning as scheduled with your primary care provider. If a repeat cardiac echo is warranted, this can be accomplished here at this facility relatively quickly. I would also say that the workup for fatigue can be broad. Certainly not necessarily exclusive to the heart. Prescriptions: No Action rosuvastatin 20 mg tablet 20 mg PO QPM Eliquis 5 mg tablet 5 mg PO BID Qty: 60 0RF omeprazole 20 mg capsule,delayed release(DR/EC) 20 mg PO DAILY Follow Up/Referrals: Simran Cleary MD [Primary Care Provider] - Stand Alone Forms: [employer] Info Instructions
--- NOTE | 2023-02-19 22:23 | CRLHL7_ITS ---
For Patients: As a result of the Century Cures Act, medical imaging exams and procedure reports are released immediately into your electronic medical record. You may view this report before your referring provider. If you have questions, please contact your health care provider. INDICATION: Asymmetric leg swelling. Atrial flutter. COMPARISON: None available. FINDINGS: Ultrasound of the venous drainage of the left lower extremity was performed using real-time perez scale imaging (B mode 2D), color flow Doppler and spectral analysis. There is no evidence of deep venous thrombosis. There is normal antegrade flow from the posterior tibial and peroneal veins superiorly through the common femoral vein. There is normal augmentation and compressibility of these veins. The greater saphenous vein in the superior and mid thigh are widely patent. The right common femoral vein is widely patent. IMPRESSION: No evidence of deep venous thrombosis on ultrasound examination of the left lower extremity. Dictated by Adrien Lyles MD @ 02/19/2023 11:41:36 PM (Electronically Signed)
== END 2023-02-20 00:23 | disposition home or self-care (01) ==
PROVIDERS: Emergency Provider Family Medicine; PCP Family Medicine
DX: R60.0 Localized edema (principal); R53.83 Other fatigue
CPT/HCPCS: 93971; 99284

== ENCOUNTER 2023-02-23 12:56 | Emergency (ER) | payer MEDICARE, OTHER, SELFPAY ==
[2023-02-23] VITALS (12 sets, daily range): BP systolic 114–133; BP diastolic 76–89; PULSE 70–87; RESP 18–24; TEMP 36.5; O2SAT 96–100; BMI 28.5
--- NOTE | 2023-02-23 13:15 | CRLHL7_ITS ---
For Patients: As a result of the Century Cures Act, medical imaging exams and procedure reports are released immediately into your electronic medical record. You may view this report before your referring provider. If you have questions, please contact your health care provider. INDICATION: HARD TO BREATHE HISTORY: Difficulty in breathing. COMPARISON: CT of the chest, 02/15/2023. Chest, 2 views, 02/15/2023. TECHNIQUE: Chest one-view portable. FINDINGS: The heart size and pulmonary vasculature are within normal limits. There is no acute airspace disease or pneumothorax. The central airway is normal. There is no sizable pleural effusion. The osseous structures are intact. Sub centimeter pulmonary nodules on the chest CT from 02/15/2023 are not visualized on portable chest x-ray. IMPRESSION: There is no acute airspace disease. Dictated by Buddy Arreaga MD @ 02/23/2023 1:59:58 PM Dictated by: Buddy Arreaga MD @ 02/23/2023 14:00:06 (Electronically Signed)
--- NOTE | 2023-02-23 13:38 | ED.CHESTPAIN ---
HPI - Chest Pain General Time Seen by Provider: 13:38 Date Seen: 02/23/23 Chief Complaint: Chest Pain Stated Complaint: hard to breathe Time Seen by Provider: 02/23/23 13:24 Source: patient and RN notes reviewed Mode of arrival: ambulatory Limitations: no limitations History of Present Illness HPI narrative: Kenji is a very pleasant 72-year-old gentleman with a history of atrial flutter currently on anticoagulation who comes to the emergency room with chest pain and shortness of breath with activity. Patient noted that this started in September of this year and he was evaluated in November at [facility]. At that time he had a normal angiogram. Unfortunately the chest pain and shortness of breath continued with activity and has become increasingly worse. He has had multiple visits here to the [place] [facility] per his . Previously it was found that he was in atrial flutter and that he had lower extremity edema. He has been wearing compression stocking since then and it has helped. He was started on an anticoagulant. He states that when he gets up to go to the bathroom in the night he is short of breath and breathing heart. He is asymptomatic at rest but states it takes about 5 minutes for the discomfort and shortness of breath to go way once he is resting. He describes the chest pain as being in his upper abdomen into his chest. He notes that the chest pain initially in September radiated into his head and he felt significant pressure. That is not present today. Patient denies any recent COVID infection, cough, fever or chills. Patient is a retired s[employer]. Also worked as a instructional design technologist. No known exposure to asbestos. Has not been in the . Does not smoke. Note patient had negative nuclear stress test May of 2022. Negative angiogram in November of 2022. Related Data Home Medications Medication Instructions Recorded Confirmed omeprazole 20 mg capsule,delayed 20 mg PO DAILY 10/01/22 02/19/23 release rosuvastatin 20 mg tablet 20 mg PO QPM 02/15/23 02/19/23 Previous Rx's Medication Instructions Recorded apixaban 5 mg tablet (Eliquis) 5 mg PO BID #60 tabs 02/15/23 furosemide 20 mg tablet (Lasix) 20 mg PO DAILY #7 tabs 02/23/23 metoprolol tartrate 25 mg tablet 12.5 mg (1/2 x 25 mg) PO BID #30 02/23/23 tabs Allergies Allergy/AdvReac Type Severity Reaction Status Date / Time No Known Drug Allergies Allergy Verified 02/23/23 16:52 Review of Systems Status of ROS Reports: 10 or more systems reviewed and unremarkable except as noted in History and below Const Denies: fever, chills or fatigue Eyes Denies: change in vision ENMT Denies: neck pain or difficulty swallowing Cardio Reports: chest pain, swelling of feet/ankles (Improved), lightheadedness and shortness of breath with exertion; Denies: palpitations Resp Reports: shortness of breath; Denies: cough or wheezing GI Denies: abdominal pain, nausea, vomiting, diarrhea or difficulty swallowing Denies: painful urination or urinary frequency Musculo Denies: neck pain Integ/Breast Denies: rash Neuro Denies: headache or numbness in extremities Psych Reports: other (Started wearing a CPAP on February 05.) Endo Denies: fatigue Allergy/Immuno Denies: wheezing PFSH PFSH Social History Smoking Status: Former smoker Do you use any of these nicotine containing products: None Second hand tobacco smoke exposure: No How often do you have a drink containing alcohol: monthly or less AUDIT-C Alcohol total score: 1 Non-prescribed substance use: denies use Exam Narrative Exam Narrative: Alert and oriented. Very pleasant well-spoken gentleman. External ears eyes nose clear. Good color. GCS of 15 mentating normally. Heart with a regular rate and rhythm without additional heart sounds or murmurs. Lungs are clear bilaterally without wheezing. Abdomen soft nontender. Lower extremities with compression stocking and no swelling. No calf tenderness. Const Vital Signs, click to edit/add: Vital Signs - 24 hr 02/23/23 13:25 02/23/23 16:26 02/23/23 16:27 Temperature 97.7 F Pulse Rate 76 78 Pulse Rate [Pulse Oximeter] 87 Respiratory Rate 24 Blood Pressure 116/77 Blood Pressure [Left Upper Arm] 132/86 Pulse Oximetry 98 98 98 Oxygen Delivery Method Room Air 02/23/23 16:30 02/23/23 16:42 02/23/23 16:45 Temperature Pulse Rate 77 76 72 Pulse Rate [Pulse Oximeter] Respiratory Rate Blood Pressure 114/81 Blood Pressure [Left Upper Arm] Pulse Oximetry 100 96 100 Oxygen Delivery Method 02/23/23 16:50 02/23/23 17:00 02/23/23 17:42 Temperature Pulse Rate 74 78 Pulse Rate [Pulse Oximeter] Respiratory Rate Blood Pressure 116/77 118/78 Blood Pressure [Left Upper Arm] Pulse Oximetry 100 99 Oxygen Delivery Method 02/23/23 18:02 02/23/23 18:22 Temperature Pulse Rate Pulse Rate [Pulse Oximeter] Respiratory Rate Blood Pressure 117/78 117/76 Blood Pressure [Left Upper Arm] Pulse Oximetry Oxygen Delivery Method Documenting provider has reviewed patient's vital signs: yes Course Course Hospital Course: Differential diagnosis includes but is not limited to congestive heart failure, acute coronary event, angina, aortic dissection, PE, pulmonary fibrosis. Will place IV and get CBC, comprehensive panel, troponin, proBNP, D-dimer. Also chest x-ray, EKG and keep patient on campus monitor. Reevaluation(s) Reevaluation #1: Patient initially walk to the bathroom with no symptoms. D-dimer elevated will pursue a chest CT at this time. Initial troponin is negative. Increased proBNP but no evidence of clinical heart failure. Reevaluation #2: I spoke with [facility] in regards to this patient. They did have images pushed to them of the CT. My concern was regarding the chronic pericardial sac thickening as well as small pericardial effusion. They feel that this was present previously. Given patient's ongoing pain cardiology is wondering if this is because he is going in and out of atrial flutter. Flutter has been rate controlled here. Suggestion by Cardiology to try small dose of metoprolol and thus 12.5 mg was given. I have also given patient 40 mg of Lasix as proBNP has gone from 700s into 1400s. Our plan is to walk patient with pulse oximetry to see if symptoms return. Vital Signs Vital signs: Initial Vital Signs Temperature 97.7 F 02/23/23 13:25 Temperature Source Temporal Artery Scan 02/23/23 13:25 Pulse Rate 87 02/23/23 13:25 Pulse Rhythm Regular 02/23/23 13:25 Respiratory Rate 24 02/23/23 13:25 Blood Pressure 132/86 02/23/23 13:25 Blood Pressure Mean 101 02/23/23 13:25 Blood Pressure Position Supine 02/23/23 13:25 Pulse Oximetry 98 02/23/23 13:25 Oxygen Delivery Method Room Air 02/23/23 13:25 Vital Signs Temperature 97.7 F 02/23/23 13:25 Pulse Rate 87 02/23/23 13:25 Respiratory Rate 24 02/23/23 13:25 Blood Pressure 132/86 02/23/23 13:25 Pulse Oximetry 98 02/23/23 13:25 Oxygen Delivery Method Room Air 02/23/23 13:25 Temperature 97.7 F 02/23/23 13:25 Pulse Rate 78 02/23/23 17:00 Respiratory Rate 24 02/23/23 13:25 Blood Pressure 117/76 02/23/23 18:22 Pulse Oximetry 99 02/23/23 17:00 Oxygen Delivery Method Room Air 02/23/23 13:25 MDM - Chest Pain MDM Narrative Medical decision making narrative: 1. Chest pain with shortness of breath-this is with activity and not at rest. Cardiac workup negative for acute coronary event with negative troponins. Initial EKG showed sinus rhythm but patient did switch to atrial flutter rate controlled. Nonspecific no T-wave changes noted. No pain at rest. 2. Elevated D-dimer-no evidence of PE. Patient currently on Eliquis for atrial flutter. 3. Disposition -home at this time. Will have patient continue Lasix 20 mg daily as well as metoprolol 12.5 mg b.i.d.. Follow up on FridayFebruary 25 for scheduled echocardiogram. I have asked cardiology at [facility] to expedite this gentleman's appointment as it is now scheduled for March 14. After receiving metoprolol 12.5 mg and Lasix 40 mg IV, patient urinated once. He was walked around the nurse's station and no tachycardia or hypoxia was noted. Patient does states he had a little bit of pressure starting by the time he went back to his room. At this time patient will be discharged home. Would like him to consider [place] consultation if he is unable to get into [facility]. Would have him talk to his primary MD. Return as needed. Medical Records Data Attestation: I reviewed the patient's medical records. Lab Data Attestation: I reviewed the patient's lab results. Labs: Lab Results 02/23/23 02/23/23 02/23/23 Range/Units 13:16 13:45 14:29 WBC 6.61 (4.50-11.00) K/uL RBC 4.54 (4.30-5.90) m/uL Hgb 13.2 L (13.5-17.5) gm/dL Hct 39.3 (37.0-53.0) % MCV 87 (80-100) fL MCH 29 (26-34) pg MCHC 34 (32-36) gm/dL RDW Coeff of [place] 13.6 (11.5-15.5) % Plt Count 237 (140-440) K/uL Neut % (Auto) 58.6 (42.0-72.0) % Lymph % (Auto) 25.1 (20-44) % Polk % (Auto) 10.9 (0.0-11.0) % Eos % (Auto) 4.7 (0.0-7.0) % Baso % (Auto) 0.5 (0.0-3.0) % Neut # (Auto) 3.88 (1.7-7.0) K/uL Lymph # (Auto) 1.66 (0.90-2.90) K/uL Polk # (Auto) 0.70 (0.00-0.90) K/UL Eos # (Auto) 0.31 (0.00-0.50) K/uL Baso # (Auto) 0.03 (0.00-0.30) K/uL Abs Immat Gran (auto) 0.01 (0.00-0.30) K/uL Imm/Tot Granulo (auto) 0.2 % D-Dimer Quant (PE/DVT) 2.45 H (0.00-0.50) ug/ml Sodium 138 (135-149) mmol/L Potassium 3.6 (3.6-5.1) mmol/L Chloride 104 (96-114) mmol/L Carbon Dioxide 25 (20-32) mmol/L BUN 15 (7-30) mg/dL Creatinine 1.0 (0.5-1.5) mg/dL Estimated Creat Clear 71.12 Estimated GFR 80 ml/min Glucose 126 H (60-115) mg/dL Calcium 9.0 (8.4-10.6) mg/dL Magnesium 2.2 (1.5-2.6) mg/dL NT-Pro-B Natriuret Pep 1490 pg/mL Lab Acknowledgement Test Added POC Troponin I 0.00 L (0.01-0.04) ng/ml 02/23/23 Range/Units 17:16 WBC (4.50-11.00) K/uL RBC (4.30-5.90) m/uL Hgb (13.5-17.5) gm/dL Hct (37.0-53.0) % MCV (80-100) fL MCH (26-34) pg MCHC (32-36) gm/dL RDW Coeff of [place] (11.5-15.5) % Plt Count (140-440) K/uL Neut % (Auto) (42.0-72.0) % Lymph % (Auto) (20-44) % Polk % (Auto) (0.0-11.0) % Eos % (Auto) (0.0-7.0) % Baso % (Auto) (0.0-3.0) % Neut # (Auto) (1.7-7.0) K/uL Lymph # (Auto) (0.90-2.90) K/uL Polk # (Auto) (0.00-0.90) K/UL Eos # (Auto) (0.00-0.50) K/uL Baso # (Auto) (0.00-0.30) K/uL Abs Immat Gran (auto) (0.00-0.30) K/uL Imm/Tot Granulo (auto) % D-Dimer Quant (PE/DVT) (0.00-0.50) ug/ml Sodium (135-149) mmol/L Potassium (3.6-5.1) mmol/L Chloride (96-114) mmol/L Carbon Dioxide (20-32) mmol/L BUN (7-30) mg/dL Creatinine (0.5-1.5) mg/dL Estimated Creat Clear Estimated GFR ml/min Glucose (60-115) mg/dL Calcium (8.4-10.6) mg/dL Magnesium (1.5-2.6) mg/dL NT-Pro-B Natriuret Pep pg/mL Lab Acknowledgement POC Troponin I 0.00 L (0.01-0.04) ng/ml Imaging Data Chest x-ray: Attestation: I have reviewed the pertinent imaging results. Radiologist's impression: The heart size and pulmonary vasculature are within normal limits. There is no acute airspace disease or pneumothorax. The central airway is normal. There is no sizable pleural effusion. The osseous structures are intact. Sub centimeter pulmonary nodules on the chest CT from 02/15/2023 are not visualized on portable chest x-ray. IMPRESSION: There is no acute airspace disease. CT scan - chest: Attestation: I have reviewed the pertinent imaging results. Radiologist's impression: There is no pulmonary embolism in the main, lobar or segmental pulmonary arteries. Pericardial thickening is present with associated pericardial calcifications and small pericardial effusion, chronic. Reflux of contrast into the IVC. Ectatic aorta with atherosclerotic changes. Upper limits of normal mediastinal and hilar lymph nodes. No thyroid lesion. No dense infiltrate. No pulmonary edema. No pleural effusion. IMPRESSION: No evidence of pulmonary thromboembolism. Chronic constrictive pericarditis. Similar appearance of the pulmonary parenchyma. ECG Data Attestation: I personally reviewed and interpreted this ECG as follows: Interpretation: EKG by my read shows sinus rhythm at a rate of 84. T-wave inversion in 3 and AVF, compared with previous Discharge Plan Discharge Clinical Impression: Fatigue Qualifiers: Fatigue type: unspecified Qualified Code(s): R53.83 - Other fatigue Atrial flutter Qualifiers: Atrial flutter type: unspecified Qualified Code(s): I48.92 - Unspecified atrial flutter Chest pain Qualifiers: Chest pain type: unspecified Qualified Code(s): R07.9 - Chest pain, unspecified Patient Disposition: Home, Self-Care Condition: Unchanged Additional Instructions: Continue Lasix daily as a diuretic. Will also have you continue metoprolol morning and night for rate control. Both of these medications were sent to your pharmacy for pickup tomorrow. Follow-up as scheduled for your echocardiogram If you do not hear from [facility] regarding an expedited appointment I would give them a call on Friday. Return to the emergency room as needed. Prescriptions: New furosemide [Lasix] 20 mg tablet 20 mg PO DAILY Qty: 7 0RF metoprolol tartrate 25 mg tablet 12.5 mg PO BID Qty: 30 2RF No Action rosuvastatin 20 mg tablet 20 mg PO QPM Eliquis 5 mg tablet 5 mg PO BID Qty: 60 0RF omeprazole 20 mg capsule,delayed release(DR/EC) 20 mg PO DAILY Follow Up/Referrals: Simran Cleary MD [Primary Care Provider] - Stand Alone Forms: [employer] Info Instructions
[2023-02-23 14:00] LABS: Basophils Absolute Auto 0.03 K/uL (0.00-0.30); Basophils Percent Auto 0.5 % (0.0-3.0); Eosinophils Absolute Auto 0.31 K/uL (0.00-0.50); Eosinophils Percent Auto 4.7 % (0.0-7.0); Hematocrit 39.3 % (37.0-53.0); Hemoglobin* 13.2 gm/dL (13.5-17.5); Immature Granulocytes Abs Auto 0.01 K/uL (0.00-0.30); Immature Granulocytes Pct Auto 0.2 %; Lymphocytes Absolute Auto 1.66 K/uL (0.90-2.90); Lymphocytes Percent Auto 25.1 % (20-44); Mean Corpuscular HGB Conc 34 gm/dL (32-36); Mean Corpuscular Hemoglobin 29 pg (26-34); Mean Corpuscular Volume 87 fL (80-100); Monocytes Percent Auto 10.9 % (0.0-11.0); Neutrophils Absolute Auto 3.88 K/uL (1.7-7.0); Neutrophils Percent Auto 58.6 % (42.0-72.0); Platelet Count* 237 K/uL (140-440); RDW Coefficient of Variation % 13.6 % (11.5-15.5); Red Blood Count 4.54 m/uL (4.30-5.90); Slide Review Reflex No; White Blood Count* 6.61 K/uL (4.50-11.00)
[2023-02-23 14:17] LABS: Chloride* 104 mmol/L (96-114); Potassium* 3.6 mmol/L (3.6-5.1); Sodium* 138 mmol/L (135-149)
[2023-02-23 14:19] LABS: Est. Creatinine Clearance* 71.12; Estimated Glomerular Filt Rate 80 ml/min
[2023-02-23 14:20] LABS: Blood Urea Nitrogen* 15 mg/dL (7-30); Carbon Dioxide* 25 mmol/L (20-32); Glucose* 126 mg/dL (60-115); Magnesium* 2.2 mg/dL (1.5-2.6)
[2023-02-23 14:31] LABS: NT Pro B Type NatriureticPept* 1490 pg/mL
[2023-02-23 14:47] LABS: D Dimer Quantitative* 2.45 ug/ml (0.00-0.50)
--- NOTE | 2023-02-23 15:10 | CRLHL7_ITS ---
For Patients: As a result of the Century Cures Act, medical imaging exams and procedure reports are released immediately into your electronic medical record. You may view this report before your referring provider. If you have questions, please contact your health care provider. INDICATION: CP, ELEVATED D DIMER COMPARISON: 02/15/2023 TECHNIQUE: CT volumetric acquisition was performed of the thorax during intravenous infusion of 95 cc Isovue 370 nonionic intravenous contrast. Please note that all CT scans at this facility use dose modulation, iterative reconstruction, and/or weight-based dosing when appropriate to reduce radiation dose to as low as reasonably achievable. FINDINGS: There is no pulmonary embolism in the main, lobar or segmental pulmonary arteries. Pericardial thickening is present with associated pericardial calcifications and small pericardial effusion, chronic. Reflux of contrast into the IVC. Ectatic aorta with atherosclerotic changes. Upper limits of normal mediastinal and hilar lymph nodes. No thyroid lesion. No dense infiltrate. No pulmonary edema. No pleural effusion. IMPRESSION: No evidence of pulmonary thromboembolism. Chronic constrictive pericarditis. Similar appearance of the pulmonary parenchyma. Please note that all CT scans at this facility use dose modulation, iterative reconstruction, and/or weight-based dosing when appropriate to reduce radiation dose to as low as reasonably achievable. Dictated by Nic Concepcion MD @ 02/23/2023 5:15:38 PM (Electronically Signed)
[2023-02-23] MEDS: FUROSEMIDE 10 MG/ML inj 40 MG IVP (19:15)
[2023-02-23] MEDS: METOPROLOL TARTRATE 25 MG TABLET 12.5 MG PO (19:15)
--- NOTE | 2023-02-23 19:29 | ED.NURSE ---
went to the bathroom once already
== END 2023-02-23 20:41 | disposition home or self-care (01) ==
PROVIDERS: Family Medicine; Emergency Provider Family Medicine; PCP Family Medicine
DX: R07.9 Chest pain, unspecified (principal); R53.83 Other fatigue
CPT/HCPCS: 36415; 71045; 71275; 80048; 83735; 83880; 84484; 85025; 85379; 93005; 96374; 99284; 99285; A9270; J1940; Q9967

== ENCOUNTER 2023-03-08 10:54 | Outpatient (CLI) | payer MEDICARE, OTHER, SELFPAY | END 2023-03-08 10:55 | disposition home or self-care (01) | LOC: AMB 03-10 10:58 | PROVIDERS: PCP Family Medicine; Visit Provider Student in an Organized Health Care Education/Training Program | DX: R06.02 Shortness of breath (principal); R53.1 Weakness | CPT/HCPCS: A0425; A0427 ==

== ENCOUNTER 2023-03-09 23:44 | Emergency (ER) | payer MEDICARE, OTHER, SELFPAY ==
[2023-03-09 23:48] VITALS: BP 110/77; PULSE 75; RESP 18; TEMP 36.4; O2SAT 99; BMI 28.9
[2023-03-10] VITALS (20 sets, daily range): BP systolic 83–144; BP diastolic 60–111; PULSE 55–61; RESP 16–18; TEMP 36.4; O2SAT 91–100
--- NOTE | 2023-03-10 00:01 | ED.SOB ---
HPI - SOB/Dyspnea General Time Seen by Provider: 00:01 Date Seen: 03/10/23 Chief Complaint: Shortness of Breath/Dyspnea Stated Complaint: Shortness of breath,light headed,chills Time Seen by Provider: 03/10/23 00:06 Source: patient, RN notes reviewed and old records reviewed Mode of arrival: ambulatory Limitations: no limitations History of Present Illness HPI Narrative: Kenji is a very pleasant 72-year-old gentleman with a history of atrial flutter currently on anticoagulation, chronic symptoms of chest tightness and shortness of breath who comes to the emergency room for evaluation for increasing symptoms. Tonight patient has new symptoms of feeling like he is chilled any does have a slight cough with clear production. He continues to have chest tightness with activity and tonthania he and his for most concerned about his shortness of breath. They state that when he had just moved a bit he gets very short of breath and lives describes his lips turning purple. At rest he does not have the symptoms but he does describe to me of funny feeling in his head while he is laying down. He states he feels as if something is shutting down. He does note that his legs continued to be swollen and that this is only something that has been going on in the past 6 months. He had been wearing compression stockings but those are in the washed tonight. In spite of feeling like he could not breathe his oxygen levels were reassuring on the monitor. Although his tells me that at home at 1 point home oximetry showed 32. Since he was last seen in [place] he did see a ring striker at [facility] who referred him to electrophysiology. He has a cardiac ablation scheduled for April 23. He continued his metoprolol since he was last seen on 02/23 as well but has now increased it to 25 mg twice daily. He continues on Lasix 40 mg daily. Since I last saw him he also had an echocardiogram which was reassuring with a normal EF. He was seen at [facility] on 03/04 as well as yesterday March 08 and was told that all of his symptoms were normal. Clearly Kenji and his are very frustrated as they do not feel that they are getting answers. They state that they are told to return if symptoms get worse and symptoms are continuing to get worse but they are not able to find answers. They are requesting that I send him to hospital for a stay and evaluation. They were told that [facility] was full when they called. They are willing to go to any other hospital. I did explain that with all of the recent normal test that would be very challenging to find an accepting hospital. They are willing to do some tests here this evening and then I will do my best to talk to specialists at [facility]. In summary: May 2022-patient underwent nuclear stress test which was normal with an EF of 65% after complaints of chest pain with exertion. September 2022-seen at the [place] [facility] with anginal-type symptoms. With recent normal stress test patient was referred to pulmonology. November 2022-patient underwent angiogram at [facility]. This was reassuring without stents and no significant lesions. 02/15/2023-presented to the [place] [facility] with increasing anginal exertion over the past few days. Noted at that time was chronic lower extremity swelling. Newly diagnosed with atrial flutter and placed on Eliquis. A chest CT was done that time because of increased D-dimer but was negative for PE. Did show bilateral subcentimeter pulmonary nodules and ground-glass opacities. 02/19/2023 return to the [place] [facility] for lower extremity edema. Worries regarding possible clot as left leg was larger than right. Ultrasound was negative. Patient had already been on Eliquis for 4 days at this time. 02/23/2023-patient returned for increasing anginal exertion and shortness of breath. ProBNP was in 1400s and D-dimer is elevated. Second CT of the chest done at that time which was negative for PE. Discussion with [facility] who is did suggest Lasix 20 mg daily and metoprolol 12.5 mg b.i.d. we were able to expedite cardiology appointment for earlier date. February 2023-patient seen by Cardiology. Patient states that they were referred immediately to the ?surgeon? and an ablation which is scheduled for April 23. At some point Lasix was increased to 40 mg daily and metoprolol to 25 mg daily. February 2023-echocardiogram done which was with a normal EF March 04-seen at [facility] with normal results March 08 2023 seen at [facility] again with were reassuring results Related Data Home Medications Medication Instructions Recorded Confirmed omeprazole 20 mg capsule,delayed 20 mg PO DAILY 10/01/22 03/09/23 release rosuvastatin 20 mg tablet 20 mg PO QPM 02/15/23 03/09/23 flecainide 100 mg tablet 100 mg PO BID 03/09/23 03/09/23 potassium chloride 20 mEq 20 meq PO DAILY 03/09/23 03/09/23 tablet,extended release Previous Rx's Medication Instructions Recorded apixaban 5 mg tablet (Eliquis) 5 mg PO BID #60 tabs 02/15/23 furosemide 20 mg tablet (Lasix) 20 mg PO DAILY #7 tabs 02/23/23 metoprolol tartrate 25 mg tablet 12.5 mg (1/2 x 25 mg) PO BID #30 02/23/23 tabs Allergies Allergy/AdvReac Type Severity Reaction Status Date / Time No Known Drug Allergies Allergy Verified 03/09/23 23:54 Review of Systems Status of ROS: Reports: 10 or more systems reviewed and unremarkable except as noted in History and below Const: Reports: chills and fatigue; Denies: fever Eyes: Denies: change in vision ENMT: Denies: neck pain, throat swelling, difficulty swallowing or hoarseness Cardio: Reports: chest pain, edema, swelling of feet/ankles, lightheadedness and shortness of breath with exertion; Denies: shortness of breath when lying down Resp: Reports: shortness of breath and cough GI: Reports: abdominal pain; Denies: nausea, vomiting, diarrhea or difficulty swallowing : Denies: painful urination or urinary frequency Musculo: Reports: extremity swelling; Denies: back pain, neck pain or extremity pain Neuro: Reports: dizziness; Denies: headache or weakness in extremities Endo: Reports: fatigue Allergy/Immuno: Denies: throat swelling PFSH PFSH Social History Smoking Status: Former smoker Do you use any of these nicotine containing products: None Second hand tobacco smoke exposure: No How often do you have a drink containing alcohol: monthly or less AUDIT-C Alcohol total score: 1 Non-prescribed substance use: denies use Exam Narrative: Exam Narrative: Patient is alert and oriented. Does appear fatigued. Eyes are clear. Heart with a bradycardic rate normal rhythm. Lungs with decreased breath sounds in the bases bilaterally right> left but remainder of breath sounds clear without wheezing. Abdomen soft somewhat protuberant but no tenderness. Lower extremities with 1 to 2+ peripheral edema non weeping. Bruises noted on the inside of left lower leg. Const: Vital Signs, click to edit/add: Vital Signs - 24 hr 03/09/23 23:48 03/10/23 00:30 03/10/23 02:18 Temperature 97.6 F Pulse Rate 57 L Pulse Rate [Pulse Oximeter] 75 Pulse Rate [orthos tatic lying Left P ulse Oximeter] 56 L Pulse Rate [orthos tatic sitting Left Pulse Oximeter] 56 L Pulse Rate [orthos tatic standing Lef t Pulse Oximeter] 58 L Respiratory Rate 18 18 Blood Pressure 117/81 Blood Pressure [Ri ght Upper Arm] 110/77 Blood Pressure [or thostatic lying Ri ght Arm] 97/70 Blood Pressure [or thostatic sitting Right Arm] 87/65 L Blood Pressure [or thostatic standing Right Arm] 83/60 L Pulse Oximetry 99 98 Oxygen Delivery Me thod Room Air 03/10/23 02:21 03/10/23 02:41 03/10/23 03:01 Temperature Pulse Rate 56 L 55 L 55 L Pulse Rate [Pulse Oximeter] Pulse Rate [orthos tatic lying Left P ulse Oximeter] Pulse Rate [orthos tatic sitting Left Pulse Oximeter] Pulse Rate [orthos tatic standing Lef t Pulse Oximeter] Respiratory Rate 18 18 18 Blood Pressure 116/89 109/85 119/79 Blood Pressure [Ri ght Upper Arm] Blood Pressure [or thostatic lying Ri ght Arm] Blood Pressure [or thostatic sitting Right Arm] Blood Pressure [or thostatic standing Right Arm] Pulse Oximetry 100 98 97 Oxygen Delivery Me thod 03/10/23 03:09 03/10/23 03:13 03/10/23 03:16 Temperature Pulse Rate 56 L 60 58 L Pulse Rate [Pulse Oximeter] Pulse Rate [orthos tatic lying Left P ulse Oximeter] Pulse Rate [orthos tatic sitting Left Pulse Oximeter] Pulse Rate [orthos tatic standing Lef t Pulse Oximeter] Respiratory Rate 16 16 16 Blood Pressure 111/91 H 112/83 109/71 Blood Pressure [Ri ght Upper Arm] Blood Pressure [or thostatic lying Ri ght Arm] Blood Pressure [or thostatic sitting Right Arm] Blood Pressure [or thostatic standing Right Arm] Pulse Oximetry 100 91 97 Oxygen Delivery Me thod 03/10/23 03:21 03/10/23 03:32 03/10/23 03:41 Temperature Pulse Rate 58 L 56 L Pulse Rate [Pulse Oximeter] Pulse Rate [orthos tatic lying Left P ulse Oximeter] 59 L Pulse Rate [orthos tatic sitting Left Pulse Oximeter] 59 L Pulse Rate [orthos tatic standing Lef t Pulse Oximeter] 56 L Respiratory Rate 16 16 Blood Pressure 104/78 118/78 Blood Pressure [Ri ght Upper Arm] Blood Pressure [or thostatic lying Ri ght Arm] 109/71 Blood Pressure [or thostatic sitting Right Arm] 112/83 Blood Pressure [or thostatic standing Right Arm] 111/91 H Pulse Oximetry 100 100 Oxygen Delivery Me thod Documenting provider has reviewed patient's vital signs: yes Course Course Hospital Course: At this time Kenji and his her clearly frustrated at his continued symptoms and fairly reassuring lab and radiological results. They would like to be transferred to hospital for overnight hospitalization in evaluation but unfortunately we cannot just do that without some sort of reasoning. This is very challenging in that in spite of his symptoms he has had a negative nuclear stress test, negative angiogram negative ultrasound negative chest CT x2, has seen ring striker. At this time I do suggest recheck of troponin, EKG, basic panel, LFTs, D-dimer, CBC. Yesterday an x-ray was done at [facility] and therefore will not repeat that. I will then speak to [facility] to see if they have any other suggestions. Will also review the chart in detail. Will add a proBNP as well. Reevaluation(s) Reevaluation #1: Patient has D-dimer return at 7.43. Looking back he has had 2 chest [address]s which were negative for PE. He also had a lower extremity Doppler which was negative for DVT. He continues on his Eliquis. One thing he did mention tonight is that his abdomen seems bigger than normal. He noted in a previous visit that the lower extremity edema seemed to be rather sudden in onset. Tonight we will be getting a CT of the chest abdomen and pelvis to rule out other potential causes of his fatigue and shortness of breath. Will give him a 500 mL bolus for kidney protection. At this time hemoglobin, white count, troponin are reassuring. Reevaluation #2: After fluid bolus of 500 mL orthostatic vital signs are much improved with minimal change in blood pressure. Patient also notes that the dizziness is much improved. Abdominal CT reassuring. However, restorative care technician noted that the arterial filling time with contrast on the chest CT was significantly delayed. He was able to speak to the radiologist to attributed that to the chronic constrictive pericarditis. On 03/03 consultation with [facility] in regards to this was done. They stated that this was chronic and not an issue to the patient's current symptoms. With the new pulmonary effusion however, I do elect to consult with the specialist. While and his significant other are thinking that maybe they would like a 2nd opinion and initially I do talk to [facility]. At this time they do invite Kenji to come to their office and be seen by their pericarditis specialist but do state that male is world renown for this particular issue. As this is a chronic issue they do not feel patient needs to be admitted. I was able to speak to [facility] Dr. Wise. Did explain that patient daily activities are significantly compromise given his continued symptoms. Noted that his chronic pericarditis did not appear to be problem in the past but now with pleural effusion and delayed contrast noted on CT radiology is wondering if this actually is an issue. Paper Bag Inspector will accept patient to [facility] for admission and workup. Vital Signs Vital signs: Initial Vital Signs Temperature 97.6 F 03/09/23 23:48 Temperature Source Temporal Artery Scan 03/09/23 23:48 Pulse Rate 75 03/09/23 23:48 Respiratory Rate 18 03/09/23 23:48 Blood Pressure 110/77 03/09/23 23:48 Blood Pressure Mean 88 03/09/23 23:48 Blood Pressure Position Supine 03/09/23 23:48 Pulse Oximetry 99 03/09/23 23:48 Oxygen Delivery Method Room Air 03/09/23 23:48 Vital Signs Temperature 97.6 F 03/09/23 23:48 Pulse Rate 75 03/09/23 23:48 Respiratory Rate 18 03/09/23 23:48 Blood Pressure 110/77 03/09/23 23:48 Pulse Oximetry 99 03/09/23 23:48 Oxygen Delivery Method Room Air 03/09/23 23:48 Temperature 97.6 F 03/10/23 06:22 Pulse Rate 59 L 03/10/23 06:41 Respiratory Rate 18 03/10/23 06:41 Blood Pressure 131/83 03/10/23 06:41 Pulse Oximetry 99 03/10/23 06:41 Oxygen Delivery Method Room Air 03/09/23 23:48 MDM - SOB/Dyspnea MDM Narrative Medical decision making narrative: 1. Orthostatic hypotension-I believe this is likely iatrogenic with the increased use of metoprolol. Patient is bradycardic and blood pressure drops to 83 systolic when standing. Patient is given 500 mL of normal saline and will repeat. Addendum: Blood pressure is much improved after 500 mL bolus. Symptoms also improved in regards to dizziness. 2. Chest pain and shortness of breath-initially thought to be anginal exertion, patient has had multiple reassuring studies to include a nuclear stress test in 2021, angiogram in November of 2022, recent echocardiogram with a normal ejection fraction. He is in sinus bradycardia rhythm tonight but has had atrial flutter in the past. He has been referred to a airline customer service agent for ablation on April 23. Troponin negative. As troponins were negative x2 yesterday I feel that this is appropriate for 1 troponin to be done tonight. EKGs shows sinus bradycardia with no change in morphology based on EKG from 02/23. 3. Elevated [id number] D-dimer was greater than 1 when patient presented to our hospital in early February. It is now greater than 7. No evidence of PE x2 CTs and lower extremity Doppler was negative in February as well. Tonight, again no evidence of PE, aortic dissection, abdominal mass. Patient currently on Eliquis daily. 4. Elevated proBNP-initially 700 in February it is now 1600 this evening. New pleural effusion noted on CT. In addition radiology notes delayed arterial filling. Usually this is accomplished in 20 seconds and tonight it was near 60 seconds. Concerned regarding the possibility of the constrictive pericarditis playing a role in spite of previous reassurance. 5. Disposition-transfer to [facility] via BLS ambulance. Will continue playground monitor. Dr. Wise excepting physician. CT images pushed to [facility] from our facility. Medical Records Attestation: I reviewed the patient's medical records. Lab Data Attestation: I reviewed the patient's lab results. Labs: Lab Results 09/04/23 Range/Units 00:40 WBC 8.75 (4.50-11.00) K/uL RBC 4.46 (4.30-5.90) m/uL Hgb 12.4 L (13.5-17.5) gm/dL Hct 37.8 (37.0-53.0) % MCV 85 (80-100) fL MCH 28 (26-34) pg MCHC 33 (32-36) gm/dL RDW Coeff of [place] 14.3 (11.5-15.5) % Plt Count 350 (140-440) K/uL Neut % (Auto) 61.7 (42.0-72.0) % Lymph % (Auto) 23.5 (20-44) % [place] % (Auto) 8.8 (0.0-11.0) % Eos % (Auto) 4.0 (0.0-7.0) % Baso % (Auto) 0.3 (0.0-3.0) % Neut # (Auto) 5.39 (1.7-7.0) K/uL Lymph # (Auto) 2.06 (0.90-2.90) K/uL [place] # (Auto) 0.80 (0.00-0.90) K/UL Eos # (Auto) 0.35 (0.00-0.50) K/uL Baso # (Auto) 0.03 (0.00-0.30) K/uL Abs Immat Gran (auto) 0.15 (0.00-0.30) K/uL Imm/Tot Granulo (auto) 1.7 % D-Dimer Quant (PE/DVT) 7.43 H (0.00-0.50) ug/ml Sodium 135 (135-149) mmol/L Potassium 4.1 (3.6-5.1) mmol/L Chloride 101 (96-114) mmol/L Carbon Dioxide 24 (20-32) mmol/L Anion Gap 10 (7-15) mEq/L BUN 21 (7-30) mg/dL Creatinine 1.2 (0.5-1.5) mg/dL Estimated Creat Clear 59.26 Estimated GFR 64 ml/min Glucose 113 (60-115) mg/dL Calcium 9.1 (8.4-10.6) mg/dL Total Bilirubin 1.3 (0.1-1.5) mg/dL AST 87 H (12-35) U/L ALT 75 H (4-50) U/L Alkaline Phosphatase 123 (40-150) U/L NT-Pro-B Natriuret Pep 1600 pg/mL Total Protein 7.4 (6.0-8.3) g/dL Albumin 3.7 (3.3-5.0) g/dL SARS-CoV-2 (PCR) Negative SARS-CoV-2 (Negative) POC Troponin I 0.02 (0.01-0.04) ng/ml Imaging Data CT Chest/Ab/Pelvis: Attestation: I have reviewed the pertinent imaging results. My impression: Noted by Radiology: Delayed contrast filling of the arteries from the normal 20 seconds to 60 seconds. Radiologist's impression: Lungs and pleura: Small right pleural effusion. No focal consolidation. Stable few scattered sub-6 mm pulmonary nodules, such as a 3 mm right upper lobe nodule (series 2, image 42) and 5 mm left lower lobe nodule (series 2, image 77). No new nodule. No pneumothorax. Cardiovascular structures: Heart size is normal. Chronic pericardial thickening with pericardial calcification and small pericardial effusion, unchanged. Thoracic aorta and main pulmonary artery are normal in caliber. No sign of pulmonary embolism. Coronary artery calcifications. Mediastinum and jaimie: No mass or adenopathy. Chest wall and axilla: No mass or adenopathy. Bones: No suspicious bone lesions. Unremarkable for age. ABDOMEN AND PELVIS: Liver: Unremarkable. Gallbladder and bile ducts: Unremarkable. Spleen: Unremarkable. Adrenal glands: Unremarkable. Pancreas: Atrophic. Kidneys: Unremarkable. GI tract: Normal in caliber. No evidence of obstruction. Few scattered colonic diverticula without evidence of diverticulitis. Normal appendix. Lymph nodes: Unremarkable. Vascular structures: Scattered atherosclerotic calcifications. Mesenteric arteries are patent. Miscellaneous: Trace free fluid in the abdomen and pelvis. No focal fluid collection. No free air. Tiny fat containing umbilical hernia. Pelvic organs: Unremarkable. Bones: No suspicious bone lesions. Unremarkable for age. IMPRESSION: 1. No evidence of pulmonary embolism. 2. Small right pleural effusion. 3. Stable few scattered sub-6 mm pulmonary nodules. 4. Chronic constrictive pericarditis, unchanged. 5. Trace free fluid in the abdomen and pelvis, nonspecific. 6. Otherwise no acute abdominal or pelvic abnormality. ECG Data Attestation: I personally reviewed and interpreted this ECG as follows: ECG interpretation date: 03/10/23 Interpretation: EKG by my read shows sinus bradycardia at a rate of 58. Patient has a WI interval of 22 milliseconds. There is a QT prolongation at 518 milliseconds corrected. Reviewing his EKG it is noted that he has some T-wave inversions in the inferior leads as well as the septal leads. Compared to February 23 this is actually a similar morphology. Discharge Plan Discharge Clinical Impression: Shortness of breath, Pleural effusion Chronic constrictive pericarditis Qualifiers: Pericarditis type: unspecified type Qualified Code(s): I31.1 - Chronic constrictive pericarditis Patient Disposition: [facility] Condition: Improved Additional Instructions: Prescriptions: No Action rosuvastatin 20 mg tablet 20 mg PO QPM Eliquis 5 mg tablet 5 mg PO BID Qty: 60 0RF furosemide [Lasix] 20 mg tablet 20 mg PO DAILY Qty: 7 0RF metoprolol tartrate 25 mg tablet 12.5 mg PO BID Qty: 30 2RF omeprazole 20 mg capsule,delayed release(DR/EC) 20 mg PO DAILY flecainide 100 mg tablet 100 mg PO BID potassium chloride 20 mEq tablet extended release 20 meq PO DAILY Stand Alone Forms: [facility] Info Instructions
[2023-03-10 00:50] LABS: Basophils Absolute Auto 0.03 K/uL (0.00-0.30); Basophils Percent Auto 0.3 % (0.0-3.0); Eosinophils Absolute Auto 0.35 K/uL (0.00-0.50); Hematocrit 37.8 % (37.0-53.0); Hemoglobin* 12.4 gm/dL (13.5-17.5); Immature Granulocytes Abs Auto 0.15 K/uL (0.00-0.30); Immature Granulocytes Pct Auto 1.7 %; Lymphocytes Absolute Auto 2.06 K/uL (0.90-2.90); Lymphocytes Percent Auto 23.5 % (20-44); Mean Corpuscular HGB Conc 33 gm/dL (32-36); Mean Corpuscular Hemoglobin 28 pg (26-34); Mean Corpuscular Volume 85 fL (80-100); Monocytes Percent Auto 8.8 % (0.0-11.0); Neutrophils Absolute Auto 5.39 K/uL (1.7-7.0); Neutrophils Percent Auto 61.7 % (42.0-72.0); Platelet Count* 350 K/uL (140-440); RDW Coefficient of Variation % 14.3 % (11.5-15.5); Red Blood Count 4.46 m/uL (4.30-5.90); White Blood Count* 8.75 K/uL (4.50-11.00)
[2023-03-10 00:58] LABS: Slide Review Reflex No; Troponin, Point-of-Care* 0.02 ng/ml (0.01-0.04)
[2023-03-10 01:06] LABS: Albumin* 3.7 g/dL (3.3-5.0); Chloride* 101 mmol/L (96-114)
[2023-03-10 01:07] LABS: Potassium* 4.1 mmol/L (3.6-5.1); Sodium* 135 mmol/L (135-149)
[2023-03-10 01:09] LABS: Anion Gap 10 mEq/L (7-15); Aspartate Amino Transferase* 87 U/L (12-35); Bilirubin Total* 1.3 mg/dL (0.1-1.5); Blood Urea Nitrogen* 21 mg/dL (7-30); Carbon Dioxide* 24 mmol/L (20-32); Creatinine* 1.2 mg/dL (0.5-1.5); Est. Creatinine Clearance* 59.26; Estimated Glomerular Filt Rate 64 ml/min; Total Protein* 7.4 g/dL (6.0-8.3)
[2023-03-10 01:10] LABS: Alanine Aminotransferase* 75 U/L (4-50); Alkaline Phosphatase* 123 U/L (40-150); Calcium* 9.1 mg/dL (8.4-10.6); Glucose* 113 mg/dL (60-115)
[2023-03-10 01:18] LABS: D Dimer Quantitative* 7.43 ug/ml (0.00-0.50)
[2023-03-10 01:19] LABS: NT Pro B Type NatriureticPept* 1600 pg/mL
--- NOTE | 2023-03-10 01:25 | CRLHL7_ITS ---
For Patients: As a result of the Century Cures Act, medical imaging exams and procedure reports are released immediately into your electronic medical record. You may view this report before your referring provider. If you have questions, please contact your health care provider. INDICATION: Shortness of breath, elevated D-dimer. Increased edema lower extremities. TECHNIQUE: CT chest PE, abdomen, and pelvis acquired with 95 cc Isovue 370 IV contrast. COMPARISON: CT PE chest 02/23/2023. FINDINGS: CHEST: Lungs and pleura: Small right pleural effusion. No focal consolidation. Stable few scattered sub-6 mm pulmonary nodules, such as a 3 mm right upper lobe nodule (series 2, image 42) and 5 mm left lower lobe nodule (series 2, image 77). No new nodule. No pneumothorax. Cardiovascular structures: Heart size is normal. Chronic pericardial thickening with pericardial calcification and small pericardial effusion, unchanged. Thoracic aorta and main pulmonary artery are normal in caliber. No sign of pulmonary embolism. Coronary artery calcifications. Mediastinum and jaimie: No mass or adenopathy. Chest wall and axilla: No mass or adenopathy. Bones: No suspicious bone lesions. Unremarkable for age. ABDOMEN AND PELVIS: Liver: Unremarkable. Gallbladder and bile ducts: Unremarkable. Spleen: Unremarkable. Adrenal glands: Unremarkable. Pancreas: Atrophic. Kidneys: Unremarkable. GI tract: Normal in caliber. No evidence of obstruction. Few scattered colonic diverticula without evidence of diverticulitis. Normal appendix. Lymph nodes: Unremarkable. Vascular structures: Scattered atherosclerotic calcifications. Mesenteric arteries are patent. Miscellaneous: Trace free fluid in the abdomen and pelvis. No focal fluid collection. No free air. Tiny fat containing umbilical hernia. Pelvic organs: Unremarkable. Bones: No suspicious bone lesions. Unremarkable for age. IMPRESSION: 1. No evidence of pulmonary embolism. 2. Small right pleural effusion. 3. Stable few scattered sub-6 mm pulmonary nodules. 4. Chronic constrictive pericarditis, unchanged. 5. Trace free fluid in the abdomen and pelvis, nonspecific. 6. Otherwise no acute abdominal or pelvic abnormality. Please note that all CT scans at this facility use dose modulation, iterative reconstruction, and/or weight-based dosing when appropriate to reduce radiation dose to as low as reasonably achievable. Dictated by Calin Rodríguez MD @ 03/10/2023 2:59:15 AM (Electronically Signed)
[2023-03-10 01:28] LABS: SARS PCR* Negative SARS-CoV-2 (Negative)
--- NOTE | 2023-03-10 05:22 | PC.NURSE ---
nurse to nurse report given to Davonte SANCHEZ at [facility]. patient going to NT4 room 859
--- NOTE | 2023-03-10 07:13 | PC.NURSE ---
reports given to EMS
--- NOTE | 2023-03-10 07:23 | PC.NURSE ---
patient transport via EMS to [facility] all belongings sent home with .
== END 2023-03-10 07:24 | disposition short-term general hospital (02) ==
PROVIDERS: Emergency Provider Family Medicine; PCP Family Medicine
DX: I31.1 Chronic constrictive pericarditis (principal); I26.99 Other pulmonary embolism without acute cor pulmonale; R06.02 Shortness of breath
CPT/HCPCS: 36415; 71260; 74177; 80053; 83880; 84484; 85025; 85379; 87635; 93005; 99285; Q9967

== ENCOUNTER 2023-03-10 07:20 | Outpatient (CLI) | payer MEDICARE, OTHER, SELFPAY | END 2023-03-10 07:21 | disposition home or self-care (01) | LOC: AMB 03-11 09:26 | PROVIDERS: PCP Family Medicine; Visit Provider Family Medicine | DX: R06.02 Shortness of breath (principal); J90 Pleural effusion, not elsewhere classified | CPT/HCPCS: A0425; A0428 ==

== ENCOUNTER 2023-05-12 11:31 | Outpatient (CLI) | payer MEDICARE, OTHER, SELFPAY | END 2023-05-12 11:32 | disposition home or self-care (01) | LOC: AMB 05-14 14:43 | PROVIDERS: PCP Family Medicine; Visit Provider Family Medicine | DX: R55 Syncope and collapse (principal); R06.02 Shortness of breath | CPT/HCPCS: A0425; A0427 ==

== ENCOUNTER 2023-05-12 12:00 | Emergency (ER) | payer MEDICARE, OTHER, SELFPAY ==
[2023-05-12] VITALS (27 sets, daily range): BP systolic 120–144; BP diastolic 69–94; PULSE 65–82; RESP 18; TEMP 36.7; O2SAT 97–100; BMI 27.2
--- NOTE | 2023-05-12 12:42 | ED.GENADULT ---
HPI - General Adult General Chief complaint: Shortness of Breath/Dyspnea Stated complaint: Shortness of breath Time Seen by Provider: 05/12/23 12:21 History of Present Illness HPI narrative: [place], started feeling short of breath and lightheaded. Went to sit down, and loss consciousness for 30 seconds. No chest pain is not feeling any symptoms now. Had a pericardiectomy in March. Is on Eliquis. 121 blood sugar . Does also note weight gain of 4-5lbs over last few days. 72-year-old man presenting to the emergency department after apparently passing out. Seven weeks ago had a pericardiectomy after severe exertional dyspnea and recurrent AFib. Has not had any episodes of atrial fibrillation since. Is actually dulled quite well with the pain. Still experiences shortness of breath with exertion but not like he did today when he was [place]; this was more intense. Went to sit down then and reports how he suddenly held his head and then went back, passing out for maybe 30 seconds maybe a minute. Came to with usual level of alertness. Did not have a headache around this event. No visual changes otherwise. Has gained some weight over the last few days of for 5 lb. She admits he does have a sweet tooth and it has been Halloween but it sounds like he has managed to lay off a candy. No fever. No persistent chest pain other than with deep breaths and that has been present since the surgery. Two days [place] Did not seem to have much difficulty with that and that did include pounding posts. Related Data Home Medications Medication Instructions Recorded Confirmed omeprazole 20 mg capsule,delayed 20 mg PO DAILY 10/01/22 05/12/23 release rosuvastatin 20 mg tablet 20 mg PO QPM 02/15/23 05/12/23 Previous Rx's Medication Instructions Recorded apixaban 5 mg tablet (Eliquis) 5 mg PO BID #60 tabs 02/15/23 metoprolol tartrate 25 mg tablet 12.5 mg (1/2 x 25 mg) PO BID #30 02/23/23 tabs Allergies Allergy/AdvReac Type Severity Reaction Status Date / Time No Known Drug Allergies Allergy Verified 05/12/23 12:11 Review of Systems Status of ROS: Reports: 6 or more systems reviewed and unremarkable except as noted in History and below PFSH PFSH Social History Smoking Status: Former smoker Do you use any of these nicotine containing products: None Second hand tobacco smoke exposure: No How often do you have a drink containing alcohol: monthly or less How often do you have six or more drinks on one occasion: Never AUDIT-C Alcohol total score: 1 Non-prescribed substance use: denies use service: No Exam Narrative: Exam Narrative: Pleasant. Calm. NAD. GCS of 15. Easily conversant. Skin is warm and dry. No trauma evidence. Is well-perfused peripherally. Trace pretibial edema. Lungs are clear. Heart in regular rate and rhythm. I do not hear murmur or rub. Cranial nerves 2-12 are intact. He is fully alert. Moving all extremities without difficulty with good strength and without sensory loss. Chest with well-healed surgical incisions including sternotomy. Const: Vital Signs, click to edit/add: Vital Signs - 24 hr 05/12/23 12:03 05/12/23 12:37 05/12/23 12:41 Temperature 98.1 F Pulse Rate 72 70 Pulse Rate [Right Pulse Oximeter] 72 Respiratory Rate 18 Blood Pressure 125/76 Blood Pressure [Ri ght Upper Arm] 138/87 Pulse Oximetry 100 100 98 Oxygen Delivery Me thod Room Air 05/12/23 12:45 05/12/23 13:00 05/12/23 13:01 Temperature Pulse Rate 70 72 70 Pulse Rate [Right Pulse Oximeter] Respiratory Rate Blood Pressure 131/75 Blood Pressure [Ri ght Upper Arm] Pulse Oximetry 100 99 100 Oxygen Delivery Me thod 05/12/23 13:15 05/12/23 13:21 05/12/23 13:30 Temperature Pulse Rate 77 74 74 Pulse Rate [Right Pulse Oximeter] Respiratory Rate Blood Pressure 140/77 H Blood Pressure [Ri ght Upper Arm] Pulse Oximetry 100 98 99 Oxygen Delivery Me thod 05/12/23 13:45 05/12/23 13:46 05/12/23 14:00 Temperature Pulse Rate 71 68 77 Pulse Rate [Right Pulse Oximeter] Respiratory Rate Blood Pressure 139/78 Blood Pressure [Ri ght Upper Arm] Pulse Oximetry 100 100 99 Oxygen Delivery Me thod 05/12/23 14:01 05/12/23 14:15 05/12/23 14:30 Temperature Pulse Rate 74 70 65 Pulse Rate [Right Pulse Oximeter] Respiratory Rate Blood Pressure 144/92 H Blood Pressure [Ri ght Upper Arm] Pulse Oximetry 100 100 99 Oxygen Delivery Me thod 05/12/23 14:32 05/12/23 14:33 05/12/23 14:45 Temperature Pulse Rate 70 67 70 Pulse Rate [Right Pulse Oximeter] Respiratory Rate Blood Pressure 126/69 Blood Pressure [Ri ght Upper Arm] Pulse Oximetry 99 97 98 Oxygen Delivery Me thod 05/12/23 15:00 05/12/23 15:01 05/12/23 15:15 Temperature Pulse Rate 70 70 72 Pulse Rate [Right Pulse Oximeter] Respiratory Rate Blood Pressure 120/74 Blood Pressure [Ri ght Upper Arm] Pulse Oximetry 100 99 97 Oxygen Delivery Me thod 05/12/23 15:30 05/12/23 15:31 Temperature Pulse Rate 69 69 Pulse Rate [Right Pulse Oximeter] Respiratory Rate Blood Pressure 127/73 Blood Pressure [Ri ght Upper Arm] Pulse Oximetry 100 [facility] has reviewed patient's vital signs: yes Course Vital Signs Vital signs: Initial Vital Signs Temperature 98.1 F 05/12/23 12:03 Temperature Source Temporal Artery Scan 05/12/23 12:03 Pulse Rate 72 05/12/23 12:03 Pulse Rhythm Regular 05/12/23 12:03 Respiratory Rate 18 05/12/23 12:03 Blood Pressure 138/87 05/12/23 12:03 Blood Pressure Mean 104 05/12/23 12:03 Blood Pressure Position Semi-Fowlers 05/12/23 12:03 Pulse Oximetry 100 05/12/23 12:03 Oxygen Delivery Method Room Air 05/12/23 12:03 Vital Signs Temperature 98.1 F 05/12/23 12:03 Pulse Rate 72 05/12/23 12:03 Respiratory Rate 18 05/12/23 12:03 Blood Pressure 138/87 05/12/23 12:03 Pulse Oximetry 100 05/12/23 12:03 Oxygen Delivery Method Room Air 05/12/23 12:03 Temperature 98.1 F 05/12/23 12:03 Pulse Rate 69 05/12/23 15:31 Respiratory Rate 18 05/12/23 12:03 Blood Pressure 127/73 05/12/23 15:31 Pulse Oximetry 100 05/12/23 15:31 Oxygen Delivery Method Room Air 05/12/23 12:03 Medical Decision Making MDM Narrative Medical decision making narrative: Unclear event though not entirely atypical unfortunately from Mr. Varma. Would watch on combat information center officer for a while at a minimum. I did actually propose admission but that seems to be a bit distasteful understandably to him. Will look for any evidence of dysrhythmia, cardiac ischemic event. Does not have any persistent symptoms nor headache that would have suggested cerebrovascular issue. Does not appear to be postictal and does not have a seizure history. Check chemistries. Labs are reassuring. Given a L normal saline. Monitor on combat information center officer so far without event. He is taking Eliquis. Would seem prudent to go ahead and do a head CT looking for possible bleed though has had no progressive or even persistent symptoms here in the emergency department. Furthermore has had extensive imaging quite recently due to prior syncopal events. Labs are reassuring. They had mentioned concerns of potassium which looks good. Hemoglobin also at 11.[address] by my read is without acute abnormality. Not able to see anything abnormal during time in the emergency department, will continue to monitor with a Holter monitor on discharge. Lab Data Lab results reviewed: Yes I reviewed the patient's lab results Labs: Lab Results 05/12/23 05/12/23 Range/Units 13:03 13:25 WBC 8.38 (4.50-11.00) K/uL RBC 4.30 (4.30-5.90) m/uL Hgb 11.4 L (13.5-17.5) gm/dL Hct 36.1 L (37.0-53.0) % MCV 84 (80-100) fL MCH 27 (26-34) pg MCHC 32 (32-36) gm/dL RDW Coeff of [place] 16.0 H (11.5-15.5) % Plt Count 273 (140-440) K/uL Neut % (Auto) 70.6 (42.0-72.0) % Lymph % (Auto) 14.7 L (20-44) % [place] % (Auto) 9.3 (0.0-11.0) % Eos % (Auto) 5.1 (0.0-7.0) % Baso % (Auto) 0.1 (0.0-3.0) % Neut # (Auto) 5.91 (1.7-7.0) K/uL Lymph # (Auto) 1.20 (0.90-2.90) K/uL [place] # (Auto) 0.80 (0.00-0.90) K/UL Eos # (Auto) 0.43 (0.00-0.50) K/uL Baso # (Auto) 0.01 (0.00-0.30) K/uL Abs Immat Gran (auto) 0.02 (0.00-0.30) K/uL Imm/Tot Granulo (auto) 0.2 % Sodium 138 (135-149) mmol/L Potassium 3.9 (3.6-5.1) mmol/L Chloride 109 (96-114) mmol/L Carbon Dioxide 24 (20-32) mmol/L Anion Gap 5 L (7-15) mEq/L BUN 10 (7-30) mg/dL Creatinine 0.7 (0.5-1.5) mg/dL Estimated Creat Clear 71.12 Estimated GFR 98 ml/min Glucose 94 (60-115) mg/dL Calcium 8.6 (8.4-10.6) mg/dL Magnesium 2.1 (1.5-2.6) mg/dL Troponin I < 0.01 L (0.01-0.04) ng/mL C-Reactive Protein 0.7 (0.5-1.0) mg/dL NT-Pro-B Natriuret Pep 827 pg/mL TSH 1.900 (0.270-4.20) uIU/mL POC Troponin I 0.01 (0.01-0.04) ng/ml ECG Data Attestation: I personally reviewed and interpreted this ECG as follows: (Normal sinus rhythm. Some baseline irritability. Comparison with EKG dated March 09 of this year has actually mildly prolonged QT/QTC relative to today at with a QTC of 486. Similar to prior.) Discharge Plan Discharge Clinical Impression: Syncope, Paroxysmal atrial fibrillation Patient Disposition: Home w/ Parent or Adult Condition: Stable Additional Instructions: Return this Holter monitor as recommended with follow-up probably about a week after to discuss results. Radiology has had a look at your head CT as well and do not see any evidence of a problem/bleed. Please call to your care team at [facility] to inform them of this event. Take these copies of your labs and imaging results today. Stay well-hydrated. I would continue with your cardiac rehab as prescribed. Prescriptions: No Action rosuvastatin 20 mg tablet 20 mg PO QPM Eliquis 5 mg tablet 5 mg PO BID Qty: 60 0RF metoprolol tartrate 25 mg tablet 12.5 mg PO BID Qty: 30 2RF omeprazole 20 mg capsule,delayed release(DR/EC) 20 mg PO DAILY Follow Up/Referrals: Simran Cleary MD [Primary Care Provider] - Stand Alone Forms: [employer] Info Instructions
[2023-05-12 13:31] LABS: Basophils Absolute Auto 0.01 K/uL (0.00-0.30); Basophils Percent Auto 0.1 % (0.0-3.0); Eosinophils Absolute Auto 0.43 K/uL (0.00-0.50); Eosinophils Percent Auto 5.1 % (0.0-7.0); Hematocrit 36.1 % (37.0-53.0); Hemoglobin* 11.4 gm/dL (13.5-17.5); Immature Granulocytes Abs Auto 0.02 K/uL (0.00-0.30); Immature Granulocytes Pct Auto 0.2 %; Lymphocytes Percent Auto 14.7 % (20-44); Mean Corpuscular HGB Conc 32 gm/dL (32-36); Mean Corpuscular Hemoglobin 27 pg (26-34); Mean Corpuscular Volume 84 fL (80-100); Monocytes Percent Auto 9.3 % (0.0-11.0); Neutrophils Absolute Auto 5.91 K/uL (1.7-7.0); Neutrophils Percent Auto 70.6 % (42.0-72.0); Platelet Count* 273 K/uL (140-440); White Blood Count* 8.38 K/uL (4.50-11.00)
[2023-05-12 13:34] LABS: Slide Review Reflex No
[2023-05-12 13:44] LABS: Chloride* 109 mmol/L (96-114); Potassium* 3.9 mmol/L (3.6-5.1); Sodium* 138 mmol/L (135-149)
[2023-05-12 13:47] LABS: Creatinine* 0.7 mg/dL (0.5-1.5); Est. Creatinine Clearance* 71.12; Estimated Glomerular Filt Rate 98 ml/min
[2023-05-12 13:47] LABS: Troponin, Point-of-Care* 0.01 ng/ml (0.01-0.04)
[2023-05-12 13:48] LABS: Anion Gap 5 mEq/L (7-15); Blood Urea Nitrogen* 10 mg/dL (7-30); Calcium* 8.6 mg/dL (8.4-10.6); Carbon Dioxide* 24 mmol/L (20-32); Glucose* 94 mg/dL (60-115); Magnesium* 2.1 mg/dL (1.5-2.6)
[2023-05-12 13:51] LABS: C Reactive Protein* 0.7 mg/dL (0.5-1.0)
[2023-05-12 14:01] LABS: NT Pro B Type NatriureticPept* 827 pg/mL; Troponin I* < 0.01 ng/mL (0.01-0.04)
--- NOTE | 2023-05-12 14:22 | ED.NURSE ---
No ectopy noted on monitor thus far.
--- NOTE | 2023-05-12 15:19 | CRLHL7_ITS ---
For Patients: As a result of the Century Cures Act, medical imaging exams and procedure reports are released immediately into your electronic medical record. You may view this report before your referring provider. If you have questions, please contact your health care provider. INDICATION: Syncope TECHNIQUE: Noncontrast axial CT of the head. Coronal and sagittal reformats. Bone and soft tissue algorithms. COMPARISON: MRI brain report 01/30/2023 FINDINGS: The ventricles and cortical sulci are diffusely prominent, compatible with mild generalized cerebral volume loss.. No midline shift or mass effect. No acute intracranial hemorrhage or extra-axial fluid collection. Poon-white matter differentiation is grossly maintained. Hypoattenuating focus is noted along the left inferior basal ganglia, typical of a prominent perivascular space. White matter attenuation is otherwise unremarkable. Mild calcific plaquing at the carotid siphons. Midline structures are unremarkable. Bony calvarium appears grossly intact. Mild mucosal thickening throughout the bilateral maxillary and left sphenoid sinuses. Clear mastoid air cells. Unremarkable orbits. IMPRESSION: 1. No skull fracture or acute intracranial hemorrhage identified. 2. Mild generalized cerebral volume loss. Please note that all CT scans at this facility use dose modulation, iterative reconstruction, and/or weight-based dosing when appropriate to reduce radiation dose to as low as reasonably achievable. Dictated by Cindi Richey MD @ 05/12/2023 4:30:22 PM (Electronically Signed)
== END 2023-05-12 17:07 | disposition home or self-care (01) ==
PROVIDERS: Emergency Provider Family Medicine; PCP Family Medicine
DX: R55 Syncope and collapse (principal); I48.0 Paroxysmal atrial fibrillation
CPT/HCPCS: 36415; 70450; 80048; 83735; 83880; 84443; 84484; 85025; 86140; 93005; 93225; 93226; 94761; 99284; 99285

== ENCOUNTER 2023-07-13 10:01 | Emergency (ER) | payer MEDICARE, OTHER, SELFPAY ==
[2023-07-13 10:11] VITALS: BP 138/76; PULSE 77; RESP 18; TEMP 36.8; O2SAT 99; BMI 26.8
--- NOTE | 2023-07-13 10:19 | CRLHL7_ITS ---
For Patients: As a result of the Century Cures Act, medical imaging exams and procedure reports are released immediately into your electronic medical record. You may view this report before your referring provider. If you have questions, please contact your health care provider. INDICATION: COVID cough TECHNIQUE: Two view chest. FINDINGS: Normal cardiac mediastinal silhouette median sternotomy possible subtle nodular infiltrates peripheral right upper lobe. No effusion no pneumothorax. IMPRESSION: 1. Possible subtle nodular infiltrates right peripheral upper lobe. Follow-up imaging recommended to ensure resolution. Dictated by Franca Albrecht MD @ 07/13/2023 10:53:54 AM (Electronically Signed)
--- NOTE | 2023-07-13 10:24 | ED.GENADULT ---
HPI - General Adult General Chief complaint: Dizziness/Vertigo Stated complaint: Covid +, lightheaded, short of breath Time Seen by Provider: 07/13/23 10:04 History of Present Illness HPI narrative: 72 year white male is a self diagnosis of COVID with a home test on Friday 2 days ago. Since then he has felt little bit off, loose stool, little bit dizzy, feels some shortness of breath at times. 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 Patient also fortunately has an O2 sat of 99-100% here in the ED. he has not really been coughing too much he has no chest pain as mention. He has had no leg swelling or edema. He is here with his in the emergency department. He is on Eliquis for atrial fibrillation paroxysmal and does have be a poor candidate for Paxil of id. Related Data Home Medications Medication Instructions Recorded Confirmed omeprazole 20 mg capsule,delayed 20 mg PO DAILY 10/01/22 07/13/23 release rosuvastatin 20 mg tablet 20 mg PO QPM 02/15/23 07/13/23 cetirizine 10 mg tablet 10 mg PO DAILY 07/13/23 07/13/23 Previous Rx's Medication Instructions Recorded apixaban 5 mg tablet (Eliquis) 5 mg PO BID #60 tabs 02/15/23 Allergies Allergy/AdvReac Type Severity Reaction Status Date / Time No Known Drug Allergies Allergy Verified 07/13/23 10:14 Review of Systems Status of ROS: Reports: 6 or more systems reviewed and unremarkable except as noted in History and below PFSH PFS Social History Smoking Status: Former smoker Do you use any of these nicotine containing products: None Second hand tobacco smoke exposure: No How often do you have a drink containing alcohol: monthly or less How often do you have six or more drinks on one occasion: Never AUDIT-C Alcohol total score: 1 Non-prescribed substance use: denies use service: No Exam Narrative: Exam Narrative: Objective: Vital signs are within normal limits, O2 sat 99% on room air, afebrile HEENT is unremarkable Neck is supple Chest is clear no rales or wheezing Heart irregular regular 2/6 systolic murmur Abdomen benign soft and Extremities are no edema neurologic nonfocal, good peripheral perfusion noted Const: Vital Signs, click to edit/add: Vital Signs - 24 hr 07/13/23 10:11 07/13/23 10:30 07/13/23 11:00 Temperature 98.2 F Pulse Rate [Pulse Oximeter] 77 75 69 Respiratory Rate 18 16 Blood Pressure [Ri ght Upper Arm] 138/76 120/80 112/70 Pulse Oximetry 99 99 98 Oxygen Delivery Me thod Room Air Room Air Room Air 07/13/23 11:30 Temperature Pulse Rate [Pulse Oximeter] 68 Respiratory Rate Blood Pressure [Ri ght Upper Arm] 116/73 Pulse Oximetry 98 Oxygen Delivery Me thod Room Air Course Vital Signs Vital signs: Initial Vital Signs Temperature 98.2 F 07/13/23 10:11 Temperature Source Temporal Artery Scan 07/13/23 10:11 Pulse Rate 77 07/13/23 10:11 Respiratory Rate 18 07/13/23 10:11 Blood Pressure 138/76 07/13/23 10:11 Blood Pressure Mean 96 07/13/23 10:11 Blood Pressure Position Semi-Fowlers 07/13/23 10:11 Pulse Oximetry 99 07/13/23 10:11 Oxygen Delivery Method Room Air 07/13/23 10:11 Vital Signs Temperature 98.2 F 07/13/23 10:11 Pulse Rate 77 07/13/23 10:11 Respiratory Rate 18 07/13/23 10:11 Blood Pressure 138/76 07/13/23 10:11 Pulse Oximetry 99 07/13/23 10:11 Oxygen Delivery Method Room Air 07/13/23 10:11 Temperature 98.2 F 07/13/23 10:11 Pulse Rate 68 07/13/23 11:30 Respiratory Rate 16 07/13/23 11:00 Blood Pressure 116/73 07/13/23 11:30 Pulse Oximetry 98 07/13/23 11:30 Oxygen Delivery Method Room Air 07/13/23 11:30 Medical Decision Making MDM Narrative Medical decision making narrative: [age] white male with history of paroxysmal atrial fibrillation on the Eliquis also takes a statin and omeprazole, presents with 2 day history of COVID symptoms with loose stool dizziness occasional shortness of breath. Will check an x-ray, blood work, and observe on monitoring. Patient has a not good candidate for Paxil of id given his blood thinner use. Also he does report he has had 4 or 5 vaccines for COVID. He does not appear clinically toxic, he is noncyanotic. I think with his O2 sat is can be able to go home. Been recommend light activity fluids, Tylenol as needed. Will monitor his O2 sat here in the ED for period of time until his blood work and x-ray return. Addendum 11:32 a.m. patient has a chest survey shows shows some nodular changes in the right upper lung, this likely related to his COVID. He should have repeat x-ray in 6-9 weeks. His labs look reassuring and his oximetry remains normal. I think we can allow him to go home at this point update his regular doctor next couple of days light activity recommended, good fluid intake. Lab Data Labs: Lab Results 07/13/23 Range/Units 10:30 WBC 4.25 L (4.50-11.00) K/uL RBC 5.36 (4.30-5.90) m/uL Hgb 14.0 (13.5-17.5) gm/dL Hct 42.9 (37.0-53.0) % MCV 80 (80-100) fL MCH 26 (26-34) pg MCHC 33 (32-36) gm/dL RDW Coeff of [place] 17.0 H (11.5-15.5) % Plt Count 219 (140-440) K/uL Neut % (Auto) 55.3 (42.0-72.0) % Lymph % (Auto) 25.9 (20-44) % [place] % (Auto) 17.9 H (0.0-11.0) % Eos % (Auto) 0.2 (0.0-7.0) % Baso % (Auto) 0.5 (0.0-3.0) % Neut # (Auto) 2.40 (1.7-7.0) K/uL Lymph # (Auto) 1.10 (0.90-2.90) K/uL [place] # (Auto) 0.80 (0.00-0.90) K/UL Eos # (Auto) 0.00 (0.00-0.50) K/uL Baso # (Auto) 0.00 (0.00-0.30) K/uL Abs Immat Gran (auto) 0.00 (0.00-0.30) K/uL Imm/Tot Granulo (auto) 0.2 % Sodium 135 (135-149) mmol/L Potassium 3.9 (3.6-5.1) mmol/L Chloride 102 (96-114) mmol/L Carbon Dioxide 21 (20-32) mmol/L Anion Gap 12 (7-15) mEq/L BUN 21 (7-30) mg/dL Creatinine 1.1 (0.5-1.5) mg/dL Estimated Creat Clear 64.65 Estimated GFR 71 ml/min Glucose 115 (60-115) mg/dL Calcium 8.6 (8.4-10.6) mg/dL Discharge Plan Discharge Clinical Impression: COVID-19 Patient Disposition: Home, Self-Care Condition: Stable Additional Instructions: Recommend light activity, Tylenol as needed for discomfort, fluids, rest for couple of days, do not go out about until your well for 2-3 days. Update regular doctor in the next 48 hours, return to ED sooner problems concerns difficulty. Recommend repeat chest x-ray in 6-9 weeks. Activity Level: Light activity Discharge Diet: Regular Prescriptions: No Action rosuvastatin 20 mg tablet 20 mg PO QPM Eliquis 5 mg tablet 5 mg PO BID Qty: 60 0RF omeprazole 20 mg capsule,delayed release(DR/EC) 20 mg PO DAILY cetirizine 10 mg tablet 10 mg PO DAILY Follow Up/Referrals: Simran Cleary MD [Primary Care Provider] - Stand Alone Forms: [employer] Info Instructions
[2023-07-13 10:30] VITALS: BP 120/80; PULSE 75; O2SAT 99
[2023-07-13 10:41] LABS: Basophils Percent Auto 0.5 % (0.0-3.0); Eosinophils Percent Auto 0.2 % (0.0-7.0); Hematocrit 42.9 % (37.0-53.0); Immature Granulocytes Pct Auto 0.2 %; Lymphocytes Percent Auto 25.9 % (20-44); Mean Corpuscular HGB Conc 33 gm/dL (32-36); Mean Corpuscular Hemoglobin 26 pg (26-34); Mean Corpuscular Volume 80 fL (80-100); Monocytes Percent Auto 17.9 % (0.0-11.0); Neutrophils Percent Auto 55.3 % (42.0-72.0); Platelet Count* 219 K/uL (140-440); Red Blood Count 5.36 m/uL (4.30-5.90); White Blood Count* 4.25 K/uL (4.50-11.00)
[2023-07-13 10:51] LABS: Chloride* 102 mmol/L (96-114); Potassium* 3.9 mmol/L (3.6-5.1); Sodium* 135 mmol/L (135-149)
[2023-07-13 10:54] LABS: Anion Gap 12 mEq/L (7-15); Blood Urea Nitrogen* 21 mg/dL (7-30); Calcium* 8.6 mg/dL (8.4-10.6); Carbon Dioxide* 21 mmol/L (20-32); Creatinine* 1.1 mg/dL (0.5-1.5); Est. Creatinine Clearance* 64.65; Estimated Glomerular Filt Rate 71 ml/min; Glucose* 115 mg/dL (60-115)
[2023-07-13 11:00] VITALS: BP 112/70; PULSE 69; RESP 16; O2SAT 98
[2023-07-13 11:11] LABS: Slide Review Reflex No
[2023-07-13 11:30] VITALS: BP 116/73; PULSE 68; O2SAT 98
== END 2023-07-13 11:47 | disposition home or self-care (01) ==
LOC: ED 10:30
PROVIDERS: Emergency Provider Family Medicine; PCP Family Medicine
DX: U07.1 COVID-19 (principal)
CPT/HCPCS: 36415; 71045; 80048; 85025; 93005; 99283; 99284

== ENCOUNTER 2024-08-26 07:23 | Day surgery (SDC) | payer MEDICARE, OTHER, SELFPAY ==
[2024-08-26] VITALS (14 sets, daily range): BP systolic 130–151; BP diastolic 74–85; PULSE 60–67; RESP 10–16; TEMP 35.9–36.6; O2SAT 96–100; BMI 29.0
--- OUTSIDE RECORDS SUMMARY | 2024-08-26 07:30 | XMS_ITS | Clinical Summary ---
Author Organization [facility] Address [address] [place] [id number] Care Team Providers Care Mine Motor Operator Name Role Phone Sarah Barreto Karlo Unavailable [phone] Simran Cleary MD Primary Care Provider Allergies No known active allergies Medications cetirizine (ZYRTEC) 10 mg tablet Take 1 tablet by mouth once daily. 90 tablet 3 07/12/19 14 Active multivitamin (MVI) tablet Take 1 Tablet by mouth once daily. 03/25/20 23 Active omeprazole (PRILOSEC) 20 mg Delayed-Release capsuleIndications:H istory of gastroesophageal reflux (GERD) Take 1 Capsule (20 mg) by mouth once daily before a meal. 100 Capsule 3 09/26/19 24 Active CPAPIndications:BIBIANA (obstructive sleep apnea) RESMED CPAP (E0601) machine for home use at pressure: 4-15cmw, Choice of mask (A7030 or A7034) w/full face cushion (A7031) x1/mo, nasal cushion (A7032) x2/mo, or nasal pillows (A7033) x 2/mo; Length of Need: 99 months; Frequency of use: Daily 1 Each 11 05/24/20 24 Active rosuvastatin (CRESTOR) 10 mg tabletIndications: CVD (arteriosclerotic cardiovascular disease) Take 1 Tablet (10 mg) by mouth at bedtime. 90 Tablet 3 07/22/19 25 Active Active Problems Problem Noted Date Diagnosed Date Monoparesis of upper extremity 08/19/2024 Lung interstitial disease 08/19/2024 Atrial flutter, unspecified type 09/26/2023 Constrictive pericarditis 06/03/2023 Prediabetes 09/25/2022 Episodic lightheadedness 09/24/2022 Abnormal PFTs 09/24/[address] nodules on CT 09/24/2022 Leg cramping 09/24/2022 Snoring 09/24/2022 History of gastroesophageal reflux (GERD) 2022 Muscle cramps at night 02/10/2017 Osteoarthritis of left knee 02/06/2017 Sensorineural hearing loss, bilateral 01/18/2013 Screen for colon cancer 09/04/2012 Overview (09/04/2012): Colonoscopy 09/2012 diverticulosis repeat in 10 years Esophageal reflux 09/01/2010 Overview (09/01/2010): 530.81K GERD (Gastroesophageal Reflux Disease) Comment: improved Plan: continue omeprazole for 1-2 months, ok for trial off med, and use of as needed antiacid, but if symptoms recur and are persistent, OK to refill proton pump inhibitor salvage determiner Fabienne Reyez MD 07/11/2009 1:07 PM Resolved Problems Problem Noted Date Diagnosed Date Resolved Date Chronic obstructive pulmonary disease 08/10/2020 10/09/2022 Encounters Date Type Department Care Team Description 08/20/2024 Orders Only [facility] [address] [facility] [address] Simran Cleary MD 1 scan: (1-Ord) [facility]-EKG-08/19/24 08/19/2024 8:45 AM ISO COORDINATOR Office Visit [facility] [address] [facility] [address] Simran Cleary MD Preoperative Exam (2.20.25 Open ventral hernia repair with mesh Location: [facility], ) 08/18/2024 Travel 07/28/2024 Nurse Triage [facility] [address] [facility] [address] Simran Cleary MD Hernia 07/28/2024 Telephone [facility] [address] [place] [address] Meg Lehman MD Questions (Surgery ) 07/19/[address] [facility] [address] [place] [address] Parrish Yoder MD Refill Request (Rosuvastatin) 07/14/2024 10:00 AM ISO COORDINATOR Ancillary Procedure [facility] [address] [place] [address] 07/14/2024 Travel 06/09/2024 Telephone [facility] [address] [place] [address] Parrish Yoder MD Results (Stress Echo) 06/08/2024 9:00 AM ISO COORDINATOR Office Visit [facility] [address] [place] [address] Cardiovascular Diagnostic Testing (Stress echo) 06/08/2024 Travel 06/02/2024 9:00 AM ISO COORDINATOR Office Visit [facility] [address] [place] [address] Meg Lehman MD Consult (Lump under sternum referred by Anamaria MARTINEZ) 06/02/2024 Travel from Last 3 Months Immunizations Name Administration Dates Next Due COVID-19 VACCINE SPIKEVAX (M ODERNA 50MCG/0.5ML) 12YO+ PFS 09/26/2023 COVID-19 vaccine (Moderna 100mcg/0.5mL) PF, V 11/13/2021,05/14/2021,10/01/2020,2020 COVID-19 vaccine (Pfizer-Bio NTech 30mcg/0.3mL) 12YO+ BIVALENT PF, MDV 04/15/2022 Influenza, Inactivated AIIV4 (Age 65+ Years) Preserv Free 06/13/2022,08/14/2021,04/25/2020 Influenza, Inactivated IIV3 (Age 65+ Years) Preserv Free 06/08/2019 Pneumococcal Poly,23-Valent (Pneumovax) 02/17/2017 Pneumococcal conj 13-Valent (Prevnar 13) 01/12/2016 Td (Age >=7 Years) 03/30/1999 Td, Preservative Free (age > = 7 Years) 06/19/2009 Tdap 01/31/2022 Zoster (Shingrix-RZV, recombinant) 06/06/2020, Zoster (Zostavax-ZVL, live) 12/09/2012 Family History Medical History Relation Name Comments Other Father lung fibrosis, myeloma Hypertension Mother Other Mother TIA approx age 88 Stroke Neg. Relation Name Status Comments Father Mother Alive Neg. Social History Tobacco Use Types Packs/Day Years Used Date Smoking Tobacco: Former Cigarettes 1 10 0 07/07/1965 - 07/07/1975 Smokeless Tobacco: Never Tobacco Cessation:Counseling Given: No Alcohol Use Standard Drinks/Week Comments Yes 0 (1 standard drink = 0.6 oz pur e alcohol) occassionally PHQ-2 Answer Date Recorded PHQ-2 TOTAL SCORE 0 09/26/2023 Social Connections Answer Date Recorded Do you often feel lonely or isolated from those around you? 0 09/26/2023 Financial Resource Strain Answer Date R ecorded Difficulty of Paying Living Expenses 3 09/26/2023 Difficulty of Paying Living Expenses Not on file 09/26/2023 Food Insecurity Answer Date Recorded Do you worry your food will run out before you are able to buy more? 1 09/26/2023 Transportation Needs Answer Date Record ed Does lack of transportation keep you from medica l appointments? 1 09/26/2023 Does lack of transportation keep you from work, meetings or getting things that you need? 1 09/26/2023 Housing Stability Answer Date Recorded What is your housing situation today? 1 09/26/2023 Utilities Answer Date Recorded Do you have trouble paying f or utilities (for example, heat, electricity, water, phone)? 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, long-term work Not on file Not on file Not on file Obstetrics History Last Filed Vital Signs Vital Sign Reading Time Taken Comments Blood Pressure 131/79 08/19/2024 8:58 AM ISO COORDINATOR Pulse 75 08/19/2024 8:58 AM ISO COORDINATOR Temperature 36.6 C (97.9 F) 08/12/2023 10:22 AM ISO COORDINATOR Respiratory Rate 20 04/29/2023 1:00 PM CDT Oxygen Saturation 98% 08/19/2024 8:5 8 AM ISO COORDINATOR Inhaled Oxygen Concentration - - Weight 89.1 kg (196 lb 6.4 oz) 08/19/19 8:58 AM ISO COORDINATOR With shoes Height 177 cm (5' 9.69) 08/19/2024 8:5 8 AM ISO COORDINATOR Body Mass Index 28.44 08/19/2024 8:58 AM ISO COORDINATOR Plan of Treatment Upcoming Encounters Date Type Department Care Team (Late st Contact Info) Description 08/26/2024 8:00 AM ISO COORDINATOR Office Visit [facility] [address] [place] [address] Meg Lehman MD [address] [place] [address] 09/14/2024 9:30 AM CDT Office Visit [address] [phone] Tami Miramontes AuD [address] [place] [address] 09/14/2024 10:30 AM CDT Office Visit [address] [phone] Tami Gonzalez PA [address] [place] [address] 09/27/2024 7:30 AM CDT Office Visit [facility] [address] [place] [address] Simran Cleary MD [address] [place] [address] Health Maintenance Due Date Last Done Comments RSV vaccine for adults or (1 - Risk 60-74 years 1-dose series) 2010 COVID-19 vaccine series (2023- season) 2024 09/26/2023, 04/15/2022, 11/13/2021, Additional history exists Influenza for age 65+ 03/07/2024 06/13/2022 , 08/14/2021, 04/25/2020, Additional history exists Depression screening for age 12+ 09/25/2024 09/26/2023, 08/12/2023, 08/06/2023, Additional history exists Medicare Wellness for age 65+ 09/26/2024, 09/24/2022, 08/14/2021, Additional history exists BMI (ht and wt on same day) for age 18+ 08/19/2025 08/19/2024, 05/24/2024, 09/26/2023, Additional history exists Fecal testing sDNA-FIT ([place] guard) for age 45-75 10/09/2025 10/09/2022 Lipids for age 45-75 02/13/2028 02/12/2023, 09/24/2022, 08/10/2020, Additional history exists Tetanus booster 02/01/2032 01/31/2022, 06/06, 03/30/1999 Pneumococcal series for age 50+ Completed 7, 01/12/2016 Hepatitis C screening for ag e 18-79 Completed 07/25/2017 Zoster (shingles) series for age 50+ Completed 06/06/2020, 03/22/2020, 12/09/2012 Tdap Completed 01/31/2022, 06/06 (Completed outside of [facility]) AAA screening age 65-74 Completed 03/22/2022, 01/21 Procedures Procedure Name Priority Date/Time Associated Diagnosis Comments EKG 12 LEAD Routine 08/20/2024 4:16 PM ISO COORDINATOR Pre-op exam DE READING EKG - NO CHARGE, COMP ONLY Routine 08/20/2024 4:15 PM ISO COORDINATOR Pre-op exam HEMOGLOBIN Routine 08/19/2024 9:59 AM ISO COORDINATOR Pre-op exam ECHO TTE COMPLETE WO CONTRAST Routine 07/14/2024 10:25 AM ISO COORDINATOR Constrictive pericarditis Atrial flutter, unspecified type (HC) ECHO STRESS EXERCISE WO CONTRAST W COLOR W LTD DOPPLER Routine 06/08/2024 9:29 AM ISO COORDINATOR ASCVD (arteriosclerotic cardiovascular disease) DE CV STRS TST XERS&/OR RX CONT ECG W/SI&R Routine 06/08/2024 12:00 AM ISO COORDINATOR ASCVD (arteriosclerotic cardiovascular disease) LIPID PANEL W REFLEX MEASURED LDL Routine 02/12/2023 8:16 AM CDT ASCVD (arteriosclerotic cardiovascular disease) SDNA-FIT EXTERNAL (COLOGUARD) Routine 10/09/2022 11:00 AM CDT Screening for colon cancer CT ABDOMEN PELVIS W STAT 03/22/2022 1 1:03 AM CDT Acute diarrhea Abdominal pain, LLQ (left lower quadrant) ANTI HCV Routine 07/25/2017 11:21 AM ISO COORDINATOR Need for hepatitis C screening test from Last 3 Months or Most Recently Relevant to Health Maintenance Results * EKG 12 LEAD (08/20/2024 4:16 PM ISO COORDINATOR) us Simran Cleary MD EKG ORD Final Resul t * DE READING EKG - NO CHARGE, COMP ONLY (08/20/2024 4:15 PM ISO COORDINATOR) us Simran Cleary MD PB - PROVIDER READINGS Ana l Result * HEMOGLOBIN (08/19/2024 9:59 AM ISO COORDINATOR) HEMOGLOBIN 15.1 13.2 - 17.1 g/dL [facility] Blood BLOOD SPECIMEN / Unknown 08/19/2024 9:59 AM ISO COORDINATOR 08/19/2024 10:00 AM ISO COORDINATOR us Simran Cleary MD HEMATOLOGY Final Resul t [facility] [address] [place] [address], [place] [phone] [facility] [address] [place] [address] * ECHO TTE COMPLETE WO CONTRAST (07/14/2024 10:25 AM ISO COORDINATOR) AORTIC VALVE MEAN PG 3 mmHg EJECTION FRACTION 51 % PEAK TR VELOCITY 1.8 m/s LVEDD 4.5 cm Anatomical Region Laterality Modality Ultrasound 07/14/2024 10:0 0 AM ISO COORDINATOR Narrative 07/14/2024 2:25 PM ISO COORDINATOR ECHOCARDIOGRAM KENJI VARMA : 1950 73 years Study Date: 07/14/2024 10:00:19 AM Gender: M BP: 120/72 mmHg Height: 175.00 cm BSA: 2.03 m Weight: 87.00 kg Tech: ERYN Referring MD: PARRISH YODER Site: [facility] Reading Location: Mobile OP Patient Location: Outpatient. Procedure: 2D, Color Doppler and Spectral Doppler. Indication for study: Constrictive pericarditis; Atrial flutter, unspecified type Cardiac Rhythm: Regular.Study quality: Good. Final Impressions: 1. Normal left ventricular size, normal wall thickness, low normal global systolic function, calculated EF of 51 %. 2. Right ventricular cavity size is normal, global systolic RV function is normal. 3. The aortic valve is normal and trileaflet, no stenosis and mild to moderate regurgitation. 4. The mitral valve is normal, mild mitral regurgitation. 5. Tricuspid valve is normal. 6. No pericardial effusion. 7. Note: respirometer not performed on this study. Chamber Sizes and Function Normal left ventricular size, normal wall thickness, low normal global systolic function, calculated EF of 51 %. Left atrial size is normal. Left atrial pressure is normal. Right ventricular cavity size is normal, global systolic RV function is normal. RV wall thickness is normal. The right atrium is normal. The pulmonary artery is of normal size and origin. The sinus of Valsalva is normal sized. The ascending aorta is normal sized. Valves, RV Pressures and Diastolic Function The aortic valve is normal in structure and trileaflet, no stenosis and mild to moderate regurgitation. The mitral valve is normal in structure, mild mitral regurgitation. Normal diastolic function. The tricuspid valve is normal in structure. Tricuspid regurgitation is mild regurgitation. The tricuspid regurgitant velocity is 1.8 m/s, the estimated right ventricular systolic pressure is 13 mmHg plus right atrial pressure. The pulmonic valve is normal. No pulmonary regurgitation. Masses, Effusion, Shunts There is no pericardial effusion. The inferior vena cava is not well visualized, respiratory size variation not well visualized. Interatrial septum is not well visualized. MEASUREMENTS AND CALCULATIONS 2-D Measurements and LV Function: LVID (d) 4.5 cm Planimetered EF 51 % LVID (s) 2.9 cm LV FS% (2D) 35 % IVS (d) 1.0 cm LVOT diameter 2.3 cm LVPW (d) 0.9 cm HR 72 bpm Ao Sinus 3.5 cm LA Vol index 26 ml/m2 Asc Ao 3.3 cm RV Max 4C (d) 4.3 cm LA 4.5 cm Diastology: Mitral Tissue Doppler E Peak 0.7 m/s e', Septum 0.07 m/s A Peak 0.8 m/s e', Lateral 0.16 m/s E/A 0.8 E/e' Average 6.05 DT 148 msec Aortic Valve: Vmax 1.1 m/s RIMMA (V) 3.92 cm AI P 1/2 490 msec VTI 0.26 m RIMMA (I) 3.76 cm LVOT V max 1.0 m/s Max PG 5 mmHg LVOT VTI 0.24 m Mean PG 3 mmHg SV 99 ml Dim Index 0.90 SV index 49 ml/m CO 7.1 l/min CI 3.5 l/min/m Mitral Valve: MVA 5.1 cm MV P 1/2 43 msec Tricuspid Valve and estimated PA pressures: TR Vmax 1.8 m/s TAPSE 1.6 cm TR maxG 13 mmHg Pulmonic Valve: PV AT 57 msec PIEDV 1.2 m/s . This study was interpreted by an [facility] accredited facility. Final Procedure Note Kellee Garcia, [facility] - 07/14/2024 ECHOCARDIOGRAM KENJI VARMA : 1950 73 years Study Date: 07/14/2024 10:00:19 AM Gender: M BP: 120/72 mmHg Height: 175.00 cm BSA: 2.03 m Weight: 87.00 kg Tech: MSR Referring MD: PARRISH YODER Site: [facility] Reading Location: Mobile OP Patient Location: Outpatient. Procedure: 2D, Color Doppler and Spectral Doppler. Indication for study: Constrictive pericarditis; Atrial flutter,unspecified type Cardiac Rhythm: Regular.Study quality: Good. Final Impressions: 1. Normal left ventricular size, normal wall thickness, low normal globalsystolic function, calculated EF of 51 %. 2. Right ventricular cavity size is normal, global systolic RV functionis normal. 3. The aortic valve is normal and trileaflet, no stenosis and mild tomoderate regurgitation. 4. The mitral valve is normal, mild mitral regurgitation. 5. Tricuspid valve is normal. 6. No pericardial effusion. 7. Note: respirometer not performed on this study. Chamber Sizes and Function Normal left ventricular size, normal wall thickness, low normal globalsystolic function, calculated EF of 51 %. Left atrial size is normal. Leftatrial pressure is normal. Right ventricular cavity size is normal, globalsystolic RV function is normal. RV wall thickness is normal. The rightatrium is normal. The pulmonary artery is of normal size and origin. Thesinus of Valsalva is normal sized. The ascending aorta is normal sized. Valves, RV Pressures and Diastolic Function The aortic valve is normal in structure and trileaflet, no stenosis andmild to moderate regurgitation. The mitral valve is normal in structure,mild mitral regurgitation. Normal diastolic function. The tricuspid valveis normal in structure. Tricuspid regurgitation is mild regurgitation. Thetricuspid regurgitant velocity is 1.8 m/s, the estimated right ventricularsystolic pressure is 13 mmHg plus right atrial pressure. The pulmonicvalve is normal. No pulmonary regurgitation. Masses, Effusion, Shunts There is no pericardial effusion. The inferior vena cava is not wellvisualized, respiratory size variation not well visualized. Interatrialseptum is not well visualized. MEASUREMENTS AND CALCULATIONS 2-D Measurements and LV Function: LVID (d) 4.5 cm Planimetered EF 51 % LVID (s) 2.9 cm LV FS% (2D) 35 % IVS (d) 1.0 cm LVOT diameter 2.3 cm LVPW (d) 0.9 cm HR 72 bpm Ao Sinus 3.5 cm LA Vol index 26 ml/m2 Asc Ao 3.3 cm RV Max 4C (d) 4.3 cm LA 4.5 cm Diastology: Mitral Tissue Doppler E Peak 0.7 m/s e', Septum 0.07 m/s A Peak 0.8 m/s e', Lateral 0.16 m/s E/A 0.8 E/e' Average 6.05 DT 148 msec Aortic Valve: Vmax 1.1 m/s RIMMA (V) 3.92 cm AI P 1/2 490 msec VTI 0.26 m RIMMA (I) 3.76 cm LVOT V max 1.0 m/s Max PG 5 mmHg LVOT VTI 0.24 m Mean PG 3 mmHg SV 99 ml Dim Index 0.90 SV index 49 ml/m CO 7.1 l/min CI 3.5 l/min/m Mitral Valve: MVA 5.1 cm MV P 1/2 43 msec Tricuspid Valve and estimated PA pressures: TR Vmax 1.8 m/s TAPSE 1.6 cm TR maxG 13 mmHg Pulmonic Valve: PV AT 57 msec PIEDV 1.2 m/s . This study was interpreted by an [facility] accredited facility. Final us Parrish Yoder MD ECHO ORD Final Result * ECHO STRESS EXERCISE WO CONTRAST W COLOR W LTD DOPPLER (06/08/2024 9:29 AM ISO COORDINATOR) PEAK TR VELOCITY 2.3 m/s LVEDD 3.8 cm Anatomical Region Laterality Modality Ultrasound 06/08/2024 9:07 AM ISO COORDINATOR Narrative 06/08/2024 9:49 AM ISO COORDINATOR STRESS ECHOCARDIOGRAM KENJI VARMA : 1950 73 years Study Date: 06/08/2024 9:07:19 AM Gender: M BP: 153/76 mmHg Height: 175.00 cm BSA: 2.03 m Weight: 87.00 kg Tech: SERA Referring MD: PARRISH YODER Site: [facility] Reading Location: Mobile-OP Patient Location: Outpatient. Procedure: Stress Echo, Color Doppler and Limited Spectral Doppler. Javier stress echo. Indication for study: ASCVD Cardiac Rhythm: Regular.Study quality: Good. Final Impressions: 1. Maximum stress test with 97.0% of age predicted maximum heart rate achieved. 2. During stress exam the patient developed shortness of breath. 3. Post stress, normal left ventricular size, normal global systolic function with an estimated EF of 70 to 75%. 4. Negative stress echo for ischemia. 5. The right ventricle is incompletely visualized, but appears enlarged on the parasternal long axis. Consider dedicated imaging. 6. The aortic valve is trileaflet, no stenosis and mild regurgitation. 7. See separate report for EKG interpretation. Stress Data: HR Systolic Diastolic Time Duration Minutes Seconds Baseline 77 bpm 153 76 mmHg 5 :49 Peak 142 bpm 189 86 mmHg Max Pred HR 146 % of Max 97% Double Product [id number] Echo Findings:This is a negative stress echo test for ischemia. Post stress, normal left ventricular size, normal global systolic function with an estimated EF of 70 to 75%. LV regional wall motion abnormalities are not present post exercise. EKG:See separate report for EKG interpretation. Exam Protocol:The patient presents with no significant symptoms at baseline. The patient exercised 5 min 49 sec to stage II according to the Javier stress echo protocol. Test terminated due to completion of protocol. 7.0 METS were achieved. The patient achieved a heart rate of 142 bpm which is 97.0% of maximum predicted heart rate. Maximum systolic blood pressure was 189 [place] [address]. Maximum stress test with 97.0% of age predicted maximum heart rate achieved. The blood pressure response was normal. The patient developed shortness of breath during the stress exam. Low (less than 1% annual mortality rate) non invasive risk stratification. Chamber Sizes and Function Normal left ventricular size, normal global systolic function. LV regional wall motion abnormalities are not present. The sinus of Valsalva is normal sized. Valves, RV Pressures and Diastolic Function The aortic valve is trileaflet, no stenosis and mild regurgitation. The mitral valve is normal in structure, mild mitral regurgitation. The tricuspid valve is normal in structure. Tricuspid regurgitation is mild. The tricuspid regurgitant velocity is 2.3 m/s, the estimated right ventricular systolic pressure is 22 mmHg plus right atrial pressure. There is normal estimated pulmonary pressure by tricuspid regurgitation velocity and right atrial pressure. MEASUREMENTS AND CALCULATIONS 2-D Measurements and LV Function: LVID (d) 3.8 cm LV FS% (2D) 46 % LVID (s) 2.0 cm HR 77 bpm IVS (d) 1.3 cm LVPW (d) 1.3 cm Ao Sinus 3.6 cm LA 4.4 cm Aortic Valve: Vmax 1.4 m/s Max PG 8 mmHg Tricuspid Valve and estimated PA pressures: TR Vmax 2.3 m/s TR maxG 22 mmHg . Report modified by Arthur Patel MD on 06/08/2024 9:49:41 AM. This study was interpreted by an [facility] accredited facility. Final (Updated) Procedure Note Arthur Patel MD - 06/08/2024 STRESS ECHOCARDIOGRAM KENJI VARMA : 1950 73 years Study Date: 06/08/2024 9:07:19 AM Gender: M BP: 153/76 mmHg Height: 175.00 cm BSA: 2.03 m Weight: 87.00 kg Tech: SERA Referring MD: PARRISH YODER Site: [facility] Reading Location: Mobile-OP Patient Location: Outpatient. Procedure: Stress Echo, Color Doppler and Limited Spectral Doppler. Brucestress echo. Indication for study: ASCVD Cardiac Rhythm: Regular.Study quality: Good. Final Impressions: 1. Maximum stress test with 97.0% of age predicted maximum heart rateachieved. 2. During stress exam the patient developed shortness of breath. 3. Post stress, normal left ventricular size, normal global systolicfunction with an estimated EF of 70 to 75%. 4. Negative stress echo for ischemia. 5. The right ventricle is incompletely visualized, but appears enlargedon the parasternal long axis. Consider dedicated imaging. 6. The aortic valve is trileaflet, no stenosis and mild regurgitation. 7. See separate report for EKG interpretation. Stress Data: HR Systolic Diastolic Time Duration Minutes Seconds Baseline 77 bpm 153 76 mmHg 5 :49 Peak 142 bpm 189 86 mmHg Max Pred HR 146 % of Max 97% Double Product [id number] Echo Findings:This is a negative stress echo test for ischemia. Poststress, normal left ventricular size, normal global systolic function withan estimated EF of 70 to 75%. LV regional wall motion abnormalities arenot present post exercise. EKG:See separate report for EKG interpretation. Exam Protocol:The patient presents with no significant symptoms atbaseline. The patient exercised 5 min 49 sec to stage II according to [facility] stress echo protocol. Test terminated due to completion of protocol.7.0 METS were achieved. The patient achieved a heart rate of 142 bpm whichis 97.0% of maximum predicted heart rate. Maximum systolic blood pressurewas 189 [place] [address]. Maximum stress testwith 97.0% of age predicted maximum heart rate achieved. The bloodpressure response was normal. The patient developed shortness of breathduring the stress exam. Low (less than 1% annual mortality rate) noninvasive risk stratification. Chamber Sizes and Function Normal left ventricular size, normal global systolic function. LV regionalwall motion abnormalities are not present. The sinus of Valsalva is normalsized. Valves, RV Pressures and Diastolic Function The aortic valve is trileaflet, no stenosis and mild regurgitation. Themitral valve is normal in structure, mild mitral regurgitation. Thetricuspid valve is normal in structure. Tricuspid regurgitation is mild.The tricuspid regurgitant velocity is 2.3 m/s, the estimated rightventricular systolic pressure is 22 mmHg plus right atrial pressure. Thereis normal estimated pulmonary pressure by tricuspid regurgitation velocityand right atrial pressure. MEASUREMENTS AND CALCULATIONS 2-D Measurements and LV Function: LVID (d) 3.8 cm LV FS% (2D) 46 % LVID (s) 2.0 cm HR 77 bpm IVS (d) 1.3 cm LVPW (d) 1.3 cm Ao Sinus 3.6 cm LA 4.4 cm Aortic Valve: Vmax 1.4 m/s Max PG 8 mmHg Tricuspid Valve and estimated PA pressures: TR Vmax 2.3 m/s TR maxG 22 mmHg . Report modified by Arthur Patel MD on 06/08/2024 9:49:41 AM. This study was interpreted by an [facility] accredited facility. Final (Updated) us Parrish Yoder MD ECHO ORD Edited Result - Final * DE CV STRS TST XERS&/OR RX CONT ECG W/SI&R (06/08/2024 12:00 AM ISO COORDINATOR) us Filippo Wagoner MD PB - CARDIOVASCULAR SYSTEM SERVICES Final Result * LIPID PANEL W REFLEX MEASURED LDL (02/12/2023 8:16 AM CDT) CHOLESTEROL,TOTAL 102 100 - 199 mg/dL 02/12/2023 4:43 PM CDT [facility] Comment: Cholesterol, Total Reference Ranges Desirable <200 mg/dL Borderline 200-239 mg/dL High >=240 mg/dL TRIGLYCERIDES 54 <150 mg/dL 02/12/2023 4:43 PM CDT [facility] HDL CHOLESTEROL 54 >40 mg/dL 4:43 PM CDT [facility] NON-HDL CHOLESTEROL 48 <145 mg/dl 02/12/2023 4:43 PM CDT [facility] CHOL/HDL RATIO 1.89 <4.50 02/12/2023 4:43 PM CDT [facility] LDL CHOLESTEROL 37 <=130 mg/dL 02/12/2023 4:43 PM CDT [facility] VLDL CHOLESTEROL 11 <=30 mg/dL 02/12/2023 4:43 PM CDT [facility] PROVIDER ORDERED STATUS RANDOM 02/12/2023 4:43 PM T [facility] Blood BLOOD SPECIMEN / Unknown Venipuncture / Unknown 02/12/2023 8:16 AM CDT 02/12/2023 8:17 AM CDT us Simran Cleary MD CHEMISTRY Final Resul t [facility] [address] [place] [address], * SDNA-FIT EXTERNAL (COLOGUARD) (10/09/2022 11:00 AM CDT) NONINV COLON CA DNA+OCC BLD SCRN STL-IMP Negative Negative 10/17/2022 4:13 PM CDT [facility] (CLIA #:[id number]) Comment: NEGATIVE TEST RESULT. A negative Cologuard result indicates a low likelihood that a colorectal cancer (CRC) or advanced adenoma (adenomatous polyps with more advanced pre-malignant features) is present. The chance that a person with a negative Cologuard test has a colorectal cancer is less than 1 in 1500 (negative predictive value >99.9%) or has an advanced adenoma is less than 5.3% (negative predictive value 94.7%). These data are based on a prospective cross-sectional study of 10,000 individuals at average risk for colorectal cancer who were screened with both Cologuard and colonoscopy. (Vicky Fields et al, N Engl J Med 2014;370(14):6381-6291) The normal value (reference range) for this assay is negative. COLOGUARD RE-SCREENING RECOMMENDATION: Periodic colorectal cancer screening is an important part of preventive healthcare for asymptomatic individuals at average risk for colorectal cancer. Following a negative Cologuard result, the [place] [employer] and U.S. Multi-Society Task Force screening guidelines recommend a Cologuard re-screening interval of 3 years. References: [place] [employer] Guideline for Colorectal Cancer Screening: https://www.cancer.org/cancer/uzubc-qhzcnm-cmtpak/dkinerfdy-bokazzcee-cpwmfat/ac s-rec ommendations.html.; Renato DK, Jenaro CR, Pito LAMBERT, Colorectal Cancer Screening: Recommendations for Physicians and Patients from the U.S. Multi-Society Task Force on Colorectal Cancer Screening , Am J Gastroenterology 2017; 112:2729-3699. TEST DESCRIPTION: Composite algorithmic analysis of stool DNA-biomarkers with hemoglobin immunoassay. Quantitative values of individual biomarkers are not reportable and are not associated with individual biomarker result reference ranges. Cologuard is intended for colorectal cancer screening of adults of either sex, 45 years or older, who are at average-risk for colorectal cancer (CRC). Cologuard has been approved for use by the U.S. FDA. The performance of Cologuard was established in a cross sectional study of average-risk adults aged 50-84. Cologuard performance in patients ages 45 to 49 years was estimated by sub-group analysis of near-age groups. Colonoscopies performed for a positive result may find as the most clinically significant lesion: colorectal cancer [4.0%], advanced adenoma (including sessile serrated polyps greater than or equal to 1cm diameter) [20%] or non- advanced adenoma [31%]; or no colorectal neoplasia [45%]. These estimates are derived from a prospective cross-sectional screening study of 10,000 individuals at average risk for colorectal cancer who were screened with both Cologuard and colonoscopy. (Vicky Smith. et al, N Engl J Med 2014;370(14):2275-5792.) Cologuard may produce a false negative or false positive result (no colorectal cancer or precancerous polyp present at colonoscopy follow up). A negative Cologuard test result does not guarantee the absence of CRC or advanced adenoma (pre-cancer). The current Cologuard screening interval is every 3 years. ([place] [employer] and U.S. Multi-Society Task Force). Cologuard performance data in a 10,000 patient pivotal study using colonoscopy as the reference method can be accessed at the following location: www.[email or web address].com/results. Additional description of the Cologuard test process, warnings and precautions can be found at www.cologNetlistrd.com. Stool specimen (specimen) (Rectum) 10/09/2022 11:00 AM CDT 10/10/2022 12:33 PM CDT Nadine Brown MD URINE Final Resul t [facility] (CLIA #:[id number]) [place] [address], * CT ABDOMEN PELVIS W (03/22/2022 11:03 AM CDT) Anatomical Region Laterality Modality Abdomen, Pelvis, AORTA, LIVER, SPLEEN Computed Tomography 03/22/2022 11:4 0 AM CDT Narrative 03/22/2022 11:40 AM CDT For Patients: As a result of the Century Cures Act, medical imaging exams and procedure reports are released immediately into your electronic medical record. You may view this report before your referring provider. If you have questions, please contact your health care provider. Indication: Vomiting, diarrhea, abd pain Technique: Postcontrast CT abdomen and pelvis. Oral water. 100 cc Omnipaque 350 intravenous contrast. Please note that all CT scans at this facility use dose modulation, iterative reconstruction, and/or weight-based dosing when appropriate to reduce radiation dose to as low as reasonably achievable. Comparison: None Findings: There are pulmonary nodules within both lung bases measuring up to 6 millimeters. No pleural effusion. A small hiatal hernia is present measuring 2 centimeters. Subcentimeter cysts are present within the liver measuring up to 5 millimeters. The gallbladder is normal. No calcified gallstones. No biliary obstruction. Pancreatic atrophy. Spleen normal in size. Normal adrenal glands. Kidneys normal. Normal ureters. Subcentimeter retroperitoneal lymph nodes. Mildly prominent mesenteric lymph nodes in the central mesenteric fat with ill-defined stranding. No fluid collection or free air. No abscess or free fluid. Vascular calcifications. No aneurysm. Postop changes to the anterior abdominal wall. No abdominal wall hernia. No postop seroma. Bladder normal. Prostate not enlarged. Increased stool is present throughout the distal colon, particularly within the rectum. No bowel wall thickening. No bowel obstruction or acute inflammation. The appendix is normal. A few scattered bone islands are present. No fracture. Impression: Increased stool within the distal colon, particularly within the rectum suggesting fecal impaction related to constipation. No inflammatory changes or bowel obstruction. Moderate chronic nonspecific mesenteric panniculitis. Postoperative changes of anterior abdominal wall hernia repair. No recurrent hernia or fluid collection. Bilateral pulmonary nodules in the lung bases measuring up to [address] Follow-up CT chest in 1 year recommended. Please note that all CT scans at this facility use dose modulation, iterative reconstruction, and/or weight-based dosing when appropriate to reduce radiation dose to as low as reasonably achievable. Dictated by Nic Concepcion MD @ 03/22/2022 11:40:44 AM (Electronically Signed) Procedure Note Nic Concepcion MD - 03/22/2022 For Patients: As a result of the Cures Act, medical imagingexams and procedure reports are released immediately into your electronicmedical record. You may view this report before your referring provider.If you have questions, please contact your health care provider. Indication: Vomiting, diarrhea, abd pain Technique: Postcontrast CT abdomen and pelvis. Oral water. 100 cc Omnipaque 350intravenous contrast. Please note that all CT scans at this facility use dose modulation,iterative reconstruction, and/or weight-based dosing when appropriate toreduce radiation dose to as low as reasonably achievable. Comparison: None Findings: There are pulmonary nodules within both lung bases measuring up to 6millimeters. No pleural effusion. A small hiatal hernia is presentmeasuring 2 centimeters. Subcentimeter cysts are present within the livermeasuring up to 5 millimeters. The gallbladder is normal. No calcifiedgallstones. No biliary obstruction. Pancreatic atrophy. Spleen normal insize. Normal adrenal glands. Kidneys normal. Normal ureters. Subcentimeterretroperitoneal lymph nodes. Mildly prominent mesenteric lymph nodes inthe central mesenteric fat with ill-defined stranding. No fluid collectionor free air. No abscess or free fluid. Vascular calcifications. Noaneurysm. Postop changes to the anterior abdominal wall. No abdominal wallhernia. No postop seroma. Bladder normal. Prostate not enlarged. Increasedstool is present throughout the distal colon, particularly within therectum. No bowel wall thickening. No bowel obstruction or acuteinflammation. The appendix is normal. A few scattered bone islands are present. No fracture. Impression: Increased stool within the distal colon, particularly within the rectumsuggesting fecal impaction related to constipation. No inflammatorychanges or bowel obstruction. Moderate chronic nonspecific mesenteric panniculitis. Postoperative changes of anterior abdominal wall hernia repair. Norecurrent hernia or fluid collection. Bilateral pulmonary nodules in the lung bases measuring up to 6millimeters. Follow-up CT chest in 1 year recommended. Please note that all CT scans at this facility use dose modulation,iterative reconstruction, and/or weight-based dosing when appropriate toreduce radiation dose to as low as reasonably achievable. Dictated by Nic Concepcion MD @ 03/22/2022 11:40:44 AM (Electronically Signed) Nadine Brown MD CT Final Resul t * ANTI HCV [47513.2] (07/25/2017 11:21 AM ISO COORDINATOR) HEPATITIS C ANTIBODY Non-Reacti ve Non-Reacti ve 07/25/2017 3:31 PM ISO COORDINATOR [facility] Blood BLOOD SPECIMEN / Unknown Venipuncture / Unknown 07/25/2017 11:21 AM ISO COORDINATOR 07/25/2017 11:21 AM ISO COORDINATOR Narrative [facility] - 07/25/2017 3:31 PM ISO COORDINATOR Antibodies to HCV not detected; does not exclude the possibility of exposure to HCV. Nadine Brown MD SEND OUTS Final Resul t [facility] [address] [place] [address], [place] from Last 3 Months or Most Recently Relevant to Health Maintenance Insurance [employer]iro[employer] MR PB ONLY MEDICA PRIME SOLUTION HB MEDICARE PART B HB ONLY MEDICARE PART A HB ONLY Advance Directives Documents on File Type Date Recorded Patient Clerical Support Specialist Expl anation Healthcare Directive 10/03/2021 022 Care Teams Mine Motor Operator Relationship Specialty Start Date End Date Simran Cleary MD [address] [place] [address] PCP - General Family Practice 02/20/23 Sarah Barreto AuD Audiology 01/03/11
--- OUTSIDE RECORDS SUMMARY | 2024-08-26 07:30 | XMS_ITS | Clinical Summary ---
Author Organization [facility] Address [address] [place] [address] Care Team Providers Care Appliance Fixer Name Role Phone Elsewhere, Pcp Primary Care Provider Unavailabl e Source Comments Patient records contain information from all sites at [facility]. For routine questions regarding patient records, call [phone] during business hours, M-F 8:00 AM - 5:00 PM Central Time. Record requests for emergency care only can be directed to [phone] at any time.[facility] Allergies No known active allergies Medications cetirizine (ZyrTEC) 10 mg tablet Take 1 tablet by mouth daily. OTC for allergies 4 Active omeprazole (PriLOSEC) [address] capsule Take 20 mg by mouth daily. 3 Active rosuvastatin (CRESTOR) 20 mg tablet Take 1 tablet (20 mg total) by mouth daily. 90 tablet 3 3 Active Additional Information Patient taking differently: 10 mgoral Daily, Reported on 05/17/2024 metoprolol tartrate (LOPRESSOR) 25 mg tablet Take 12.5 mg by mouth 2 (two) times a day. 3 Active apixaban (ELIQUIS) 5 mg tablet Take 5 mg by mouth 2 (two) times a day. 3 Active multivitamin capsule Take 1 capsule by mouth daily. Active furosemide (LASIX) 20 mg tablet Take 1 tablet (20 mg total) by mouth 2 (two) times a day for 7 days, THEN 1 tablet (20 mg total) daily for 23 days. 37 tablet 3 Active acetaminophen (TYLENOL) 500 mg tablet Take 2 tablets (1,000 mg total) by mouth every 6 (six) hours as needed for pain. 3 Active POTASSIUM CITRATE ORAL Take 99 mg by mouth daily. Active magnesium 200 mg tablet Take 200 mg by mouth at bedtime. Active Active Problems Problem Noted Date Diagnosed Date Excess Fluid Volume 03/24/2023 Pericardiectomy Status Post 03/21/2023 Leukocytosis 03/20/2023 Delirium (not otherwise specified) 03/20/2023 Anemia 03/16/2023 Dyspnea 03/10/2023 Pericarditis Constrictive 03/10/2023 Edema 03/06/2023 Fatigue 03/06/2023 Nodule Pulmonary Solitary 03/06/2023 Flutter Atrial 02/27/2023 Atrial Fibrillation Unspecified 02/27/2023 Pain Chest 11/14/2022 Dyspnea On Exertion 11/14/2022 Abnormal Pulmonary Function 09/24/2022 Cramp And Spasm 09/24/2022 Dizziness And Giddiness 09/24/2022 Other Nonspecific Abnormal Finding Of Lung Field 09/24/2022 Primary Osteoarthritis Knee Left 02/06/2017 Loss Hearing Sensorineural Bilateral 01/18/2013 Gastroesophageal Reflux Disease NOS 09/01/2010 Overview (03/06/2023): 530.81K GERD (Gastroesophageal Reflux Disease) Comment: improved Plan: continue omeprazole for 1-2 months, ok for trial off med, and use of as needed antiacid, but if symptoms recur and are persistent, OK to refill proton pump inhibitor intermediate frame tender Fabienne Reyez MD 07/11/2009 1:07 PM Resolved Problems Problem Noted Date Diagnosed Date Resolved Date Dysphagia 03/24/2023 03/24/2023 Atelectasis 03/24/2023 03/24/2023 Shock Cardiogenic 03/20/2023 03/25/2023 Acidosis Lactic 03/20/2023 03/20/2023 Encounters Date Type Department Care Team Description 06/09/2024 10:30 AM STRAIGHT KNIFE CUTTER MACHINE Comprehensive Visit Department of Neurology in [place], [place] [address] [place] [address] Calin Spaulding M.D. Dizziness from Last 3 Months Immunizations Immunization Administration Dates Next Due HZV (ZOSTAVAX) 12/09/2012 Influenza TIV (IM) 06/08/2019 Influenza, Quadrivalent, Adj uvanted, Preservative Free 06/13/2022,08/14/2021,04/25/2020 PCV13 01/12/2016 PPSV23 02/17/2017 RZV (SHINGRIX) 06/06/2020,03/22/2020 SARS-COV-2 (COVID-19) - MODERNA(Discontinued) 11/13/2021,05/14/2021 Td Preservative Free (TENIVAC, DECAVAC) 06/19/20 09 Tdap 01/31/2022 Social History Tobacco Use Types Packs/Day Years Used Date Smoking Tobacco: Former Cigarettes Q uit: 07/07/1980 Smokeless Tobacco: Never Tobacco Cessation:Counseling Given: Not Answered Alcohol Use Standard Drinks/Week Comments Not Asked 0 (1 standard drink = 0.6 oz pur e alcohol) Once a month [facility] Utilities Answer Date Recorded In the past 12 months has [employer] electric, gas, oil, or water company threatened to shut off services in your home? No 06/09/2024 Overall Financial Resource Strain (CARDIA) Answe r Date Recorded How hard is it for you to pa y for the very basics like food, housing, medical care, and heating? Not hard at all 05/13/2023 PHQ-2 Answer Date Recorded PHQ-2 Score 3 03/14/2023 Exercise Vital Sign Answer Date Recorde d On average, how many days pe r week do you engage in moderate to strenuous exercise (like a brisk walk)? 2 days 06/09/2024 On average, how many minutes do you engage in exercise at this level? 50 min 06/09/2024 Hunger Vital Sign Answer Date Recorded Within the past 12 months, y ou worried that your food would run out before you got the money to buy more. Never true 06/09/20 24 Within the past 12 months, t he food you bought just didn't last and you didn't have money to get more. Never true 06/09/2024 PRAPARE - Transportation Answer Date Re corded In the past 12 months, has l ack of transportation kept you from medical appointments or from getting medications? No 10/2023 In the past 12 months, has l ack of transportation kept you from meetings, work, or from getting things needed for daily living? No 06/09/2024 Depression Answer Date Recor ded PHQ-9 Total Score (max 27) 8 03/14 Nutrition Answer Date Recorded On average, how many serving s of fruits and vegetables do you eat per day (serving size is equal to 1 cup or approximately the size of a tennis ball)? 0-2 06/09/2024 Dental Answer Date Recorded Dental: Regular Dentist Yes 05/13/20 Employment Answer Date Recorded Employment status Retired 06/09/2024 Housing Stability Answer Date Recorded What is your living situation today? I have a [facility] place to live 06/09/2024 Sex and Gender Information Value Date Recorded Sex Assigned at Male 05/13/2023 7:54 PM STRAIGHT KNIFE CUTTER MACHINE Legal Sex Male 12:40 PM CDT Gender Identity Male 05/13/2023 7:54 PM STRAIGHT KNIFE CUTTER MACHINE Sexual Orientation Straight 05/13/2023 7: 54 PM STRAIGHT KNIFE CUTTER MACHINE Last Filed Vital Signs Vital Sign Reading Time Taken Comments Blood Pressure 111/66 06/09/2024 10:41 AM STRAIGHT KNIFE CUTTER MACHINE Pulse 69 06/09/2024 10:41 AM STRAIGHT KNIFE CUTTER MACHINE Temperature 36.3 C (97.3 F) 03/29/2024 2:25 PM CDT Respiratory Rate 17 03/25/2023 11:58 AM CDT Oxygen Saturation 98% 03/29/2024 2:25 PM CDT Inhaled Oxygen Concentration - - Weight 88 kg (194 lb 0.1 oz) 06/09/2024 10:41 AM STRAIGHT KNIFE CUTTER MACHINE Height 177.4 cm (5' 9.84) 06/09/2024 10:[address] Body Mass Index 27.96 06/09/2024 10:41 AM STRAIGHT KNIFE CUTTER MACHINE Plan of Treatment Health Maintenance Due Date Last Done Comments CT Colonography 1950 Colonoscopy 1950 FIT 1950 Hepatitis C Screening 1950 RSV vaccine - (32-36 weeks) or 60+ years (1 - Risk 60-74 years 1-dose series) 2010 COVID-19 Vaccine ( season) 2024 09/26/2023, 04/15/2022, 11/13/2021, Additional history exists Influenza Vaccine (#1) 2024 2, 08/14/2021, 04/25/2020, Additional history exists Depression Screening (Annual PHQ-2) 07/07/2024 Fall Risk Screen (Annual) 07/07/2024 Cologuard 10/09/2025 10/09/2022 Colorectal Cancer Screening 10/09/2025 Fasting Glucose for Diabetes Screening 03/29/2027 03/29/2024, 12/25/2023, 04/15/2023, Additional history exists DTaP,Tdap,and Td Vaccines (2 - Td or Tdap) 02/01/2032 01/31/2022, 06/19/2009 Pneumococcal vaccine (50+ years) Completed 02/17/2017, 01/12/2016 Zoster Vaccines Completed 06/06/2020, 03/07, 12/09/2012 Abdominal Aortic Aneurysm (AAA) Screen Completed 03/12/2023, 03/22/2022, 03/22/2022 IPV Vaccines Aged Out No longer eligi ble based on patient's age to complete this topic Medical Devices Implanted Type Area Hand Deicer Element Winder Device Identifier Shelf Expiration Date Model / Serial / Lot Clp Hrzn Ti 6 Candace Dodd Juan R - [id number] Implanted:Qty : 1 on 03/19/2023 by Albert Olson M.D. at [facility] Hardware e.g. pins/screws/ rods N/A: Chest [employer] [id number] 11/26/2027 [id number] / [id number] Procedures Procedure Name Priority Date/Time Associated Diagnosis Comments COMPREHENSIVE METABOLIC PANEL, S/P Routine 03/29/2024 11:35 AM CDT Dyspnea Multifactorial US ABDOMEN LIMITED RAD - Routine (most inpatients and all outpatients) 03/12/2023 3:30 PM CDT from Last 3 Months or Most Recently Relevant to Health Maintenance Results * Comprehensive Metabolic Panel (03/29/2024 11:35 AM CDT) Pathologist [facility] Potassium, S 4.7 3.6 - 5.2 mmol/L 03/29/2024 12:52 PM CDT DTL Sodium, S 139 135 - 145 mmol/L 03/29/2024 12:52 PM CDT DTL Chloride, S 104 98 - 107 mmol/L 03/29/2024 12:52 PM CDT DTL Bicarbonate, S 26 22 - 29 mmol/L 03/29/2024 12:52 PM CDT DTL Anion Gap 9 7 - 15 03/29/2024 12:52 PM CDT DTL BUN (Blood Urea Nitrogen), S 15 8 - 24 mg/dL 03/29/2024 12:52 PM CDT DTL Creatinine 1.11 0.74 - 1.35 mg/dL 03/29/2024 12:52 PM CDT DTL Estimated GFR (eGFR) 70 >=60 mL/min/BS A 03/29/2024 12:52 PM CDT DTL Comment: Estimated GFR calculated using the 2020 CKD_EPI creatinine equation. Calcium, Total, S 9.5 8.8 - 10.2 mg/dL 03/29/2024 12:52 PM CDT DTL Glucose, S 90 70 - 140 mg/dL 03/29/2024 12:52 PM CDT DTL Protein, Total, S 7.4 6.3 - 7.9 g/dL 03/29/2024 12:52 PM CDT DTL Albumin, S 4.2 3.5 - 5.0 g/dL 03/29/2024 12:52 PM CDT DTL Aspartate Aminotransferase (AST), S 19 8 - 48 U/L 03/29/2024 12:52 PM CDT DTL Alkaline Phosphatase, S 91 40 - 129 U/L 03/29/2024 12:52 PM CDT DTL Alanine Aminotransferase (ALT), S 18 7 - 55 U/L 03/29/2024 12:52 PM CDT DTL Bilirubin, Total, S 0.7 0.0 - 1.2 mg/dL 03/29/2024 12:52 PM CDT DTL Blood (Blood, Venous) 03/29/2024 11:35 AM CDT 03/29/2024 12:20 PM CDT us Amarilis Hollis M.D. LAB BLOOD ADD-ON Final Res ult [facility] [address] [place] [address], [place] DTL [facility] [address] [place] [address] * US Abdomen Limited (03/12/2023 3:30 PM CDT) Anatomical Region Laterality Modality Abdomen, Ultrasound RST LOS, Ultrasound ARZ LOS, Ultrasound FLA LOS N/A Ultrasound 03/12/2023 3:40 PM CDT Impressions 03/12/2023 4:09 PM CDT 1. No drainable ascites. 2. Small right-sided pleural effusion. Narrative 03/12/2023 4:09 PM CDT EXAM: US ABDOMEN LIMITED COMPARISON: CT chest abdomen and pelvis 03/10/2073. FINDINGS: No drainable ascites fluid at the time of the exam. Small right-sided pleural effusion. Procedure Note Jason Moya M.D. - 03/12/2023 EXAM: US ABDOMEN LIMITED COMPARISON: CT chest abdomen and pelvis 03/10/2073. FINDINGS: No drainable ascites fluid at the time of the exam. Small right-sided pleural effusion. IMPRESSION: 1. No drainable ascites. 2. Small right-sided pleural effusion. us Josue Lauren M.D. [facility] [place] PROCEDURES Final Re sult from Last 3 Months or Most Recently Relevant to Health Maintenance Insurance MEDICARE MEDICA Advance Directives For more information, please contact: [phone] Documents on File Type Date Recorded Patient Prizer Hand Expl anation Advance Directives 11/29/2022 3:20 AM Sandra Mcqueen rsonFortino AvaniLori Avani HCPOA/ADVOCATE/AGENT/R EPRESENTATIVE/SURROGAT E * Full Code (Latest Code Status on File) Date Activated Date Inactivated Comments 03/19/2023 1:06 PM 03/25/2023 2:42 PM Question Answer Comments Full Code: Discussed * Full Code Date Activated Date Inactivated Comments 03/10/2023 9:23 AM 03/19/2023 1:06 PM Question Answer Comments Full Code: Discussed Healthcare Agents on File Name Relationship Healthcare Agent Relationship Communication Sandra Varma Spouse Health Care Agent Fortiondio Varma Child First Alternate Health Care Agent Simi Avani Child First Alternate Health Care Agent Betzy Avani Child First Alternate Health Care Agent Care Teams Appliance Fixer Relationship Specialty Start Date End Date Elsewhere, Pcp PCP - General 11/12/22
[2024-08-26] MEDS: SODIUM CHLORIDE 0.9 % (FLUSH) 10 ML SYRINGE IVF (08:15)
[2024-08-26] MEDS: LACTATED RINGERS 1000 ML 1,000 ML 100 ML IV (08:15)
--- NOTE | 2024-08-26 08:36 | W.PM.H&PU ---
History & Physical Update History & Physical Update H&P Reviewed and patient assessed: No changes noted
[2024-08-26] MEDS: CEFAZOLIN 2 GM INJ IVP (08:55)
--- NOTE | 2024-08-26 09:10 | P.ANES_ITS ---
Anesthesia Charges Start Date/Time Anesthesia Start Date: 08/26/24 Anesthesia Start Time: 08:44 Stop Date/Time Anesthesia Stop Date: 08/26/24 Anesthesia Stop Time: 09:57 Summary Extremes of Age - Over 70 or under 1: MDA Coding CPT Codes CPT Codes: ANESTH REPAIR OF HERNIA - 55129 ([id number]) P3 - PATIENT W/SEVERE SYS DISEASE, QK - MANAGER AGENCY 2-4 CNCRNT ANES PROC, QX - HEEL LAYER SVC W/ MD MED DIRECTION Additional Codes: Summary - Extremes of Age - Over 70 or under 1: MDA ([id number])
--- NOTE | 2024-08-26 09:10 | W.ANESCHARGE ---
Anesthesia Charges Start Date/Time Anesthesia Start Date: 08/26/24 Anesthesia Start Time: 08:44 Stop Date/Time Anesthesia Stop Date: 08/26/24 Anesthesia Stop Time: 09:57 Summary Extremes of Age - Over 70 or under 1: MDA Coding CPT Codes CPT Codes: ANESTH REPAIR OF HERNIA - 08030 ([id number]) P3 - PATIENT W/SEVERE SYS DISEASE, QK - SUPPLY SERVICE WORKER 2-4 CNCRNT ANES PROC, QX - BEHAVIOR MANAGEMENT SPECIALIST SVC W/ MD MED DIRECTION Additional Codes: Summary - Extremes of Age - Over 70 or under 1: MDA ([id number])
[2024-08-26] MEDS: BUPIVACAINE 0.25% 30 ML INJECTION (09:22)
[2024-08-26] MEDS: LIDOCAINE 1 % PF 30 ML INJECTION (09:45)
--- NOTE | 2024-08-26 10:03 | PM.GSPRC ---
Operative Note Date of procedure: 08/26/24 Pre-op diagnosis: Incisional hernia Post-op diagnosis: Same Type of Procedure: Open incisional hernia repair with placement of mesh Indications: Patient is a 73-year-old male who underwent open heart surgery with a median sternotomy. Following the procedure he had a hernia developed just below his xiphoid. He was symptomatic and decided to pursue surgical intervention. Risks and benefits of operative intervention were discussed at length with the patient. Risks included but was not limited to: Bleeding, infection, risk of damage to surrounding structures, possible need for additional procedures, risk of recurrence and postoperative complications such as pneumonia, pulmonary emboli or VA. All questions and concerns were addressed with the patient agreeing to proceed. Procedure Description: After discussing the risks and benefits of the procedure, the patient signed informed consent.? The operative site was marked and the patient was brought to the operating room and placed on the operating table in supine position.? Care was taken to pad the patient's pressure points.?? The patient was then intubated by anesthesia.?? The operative site was then prepped and draped in the usual sterile fashion.? A time-out was then performed. A transverse incision was made on the xiphoid process extending onto the upper abdomen. Dissection was carried through scar tissue into subcutaneous tissue. The hernia sac was encountered and dissected out circumferentially down to the fascial defect. Once it was completely dissected free it was able to be reduced. The defect measured 3 cm in size and was just below the xiphoid process. A preperitoneal space was created with cautery and blunt dissection. This dissection was continued superiorly, so that a space was created below the xiphoid process. A piece of medium, 6.[address] mesh was then placed in the preperitoneal space. There was adequate overlap of at least 2 cm circumferentially around the defect. The mesh was then secured with 2 0 PDS to the periosteum of the xiphoid process on the superior aspect and with trans fascial interrupted sutures of 2 0 PDS circumferentially. The fascial defect was then closed with a running 0 Vicryl stitch. Local anesthetic was used to anesthetize the fascia and subcutaneous tissue. Hemostasis was assured with electrocautery. The incision was then closed in layers of interrupted 3-0 Vicryl and running 4-0 Monocryl subcuticular stitch. Steri-Strips were applied. Sterile dressings were then applied. ? The patient was then woken and transported to the recovery area in stable condition. ? The patient tolerated the procedure well. Findings: 3 cm incisional hernia, repaired open with placement of mesh. Anesthesia: GETA Surgeon: Meg Lehman MD Estimated blood loss (mL): 5 Condition: stable Disposition: PACU
--- NOTE | 2024-08-26 11:15 | P.ANES_ITS ---
Anesthesia Charges Start Date/Time Anesthesia Start Date: 08/26/24 Anesthesia Start Time: 08:44 Stop Date/Time Anesthesia Stop Date: 08/26/24 Anesthesia Stop Time: 09:57 Summary Extremes of Age - Over 70 or under 1: ACID ADJUSTER Coding CPT Codes CPT Codes: ANESTH REPAIR OF HERNIA - 92066 ([id number]) P3 - PATIENT W/SEVERE SYS DISEASE, QK - ELECTROTYPER 2-4 CNCRNT ANES PROC, QX - ACID ADJUSTER SVC W/ MD MED DIRECTION Additional Codes: Summary - Extremes of Age - Over 70 or under 1: ACID ADJUSTER ([id number])
--- NOTE | 2024-08-26 11:15 | W.ANESCHARGE ---
Anesthesia Charges Start Date/Time Anesthesia Start Date: 08/26/24 Anesthesia Start Time: 08:44 Stop Date/Time Anesthesia Stop Date: 08/26/24 Anesthesia Stop Time: 09:57 Summary Extremes of Age - Over 70 or under 1: MANAGER RECRUITMENT Coding CPT Codes CPT Codes: ANESTH REPAIR OF HERNIA - 48734 ([id number]) P3 - PATIENT W/SEVERE SYS DISEASE, QK - BRICK PICKER 2-4 CNCRNT ANES PROC, QX - MANAGER RECRUITMENT SVC W/ MD MED DIRECTION Additional Codes: Summary - Extremes of Age - Over 70 or under 1: MANAGER RECRUITMENT ([id number])
--- NOTE | 2024-08-26 11:35 | SUR.PHASEII ---
Pt tolerated toast and juice. Pt states pain is tolerable at this time. in room .
== END 2024-08-26 12:39 | disposition home or self-care (01) ==
PROVIDERS: PCP Family Medicine; Visit Provider Surgery
PROC: (CPT 49593; principal; 2024-08-26 08:45)
DX: K43.2 Incisional hernia without obstruction or gangrene (principal)
CPT/HCPCS: 49593; 00752; 99100; C1781; J0330; J0665; J0690; J1100; J1885; J2003; J2405; J2704; J3010; J3490; J7120